=== PATIENT | male | born 1945 | race Caucasian/White ===

== ENCOUNTER 2016-11-15 11:39 | Emergency (ER) | payer MEDICARE, OTHER ==
[2016-11-15] MEDS ORDERED: RX INFO: IV CONTRAST WAS GIVEN 1 EACH MISC MISCELLANE PRN (12:53)
[2016-11-15] MEDS ORDERED: FAMOTIDINE 20 MG/2 ML VIAL IV STA (12:53)
[2016-11-15] MEDS ORDERED: MORPHINE SULFATE 4 MG/ML SYRINGE IVP STA (12:53)
[2016-11-15] MEDS ORDERED: SODIUM CHLORIDE 0.9% 1,000 ML IV STA (12:53)
--- NOTE | 2016-11-15 12:58 | ED ---
Abdominal Pain HPI - General Chief Complaint: Abdominal Pain Stated Complaint: abd pain Time Seen by Provider: 11/15/16 12:43 Source: patient, family Mode of arrival: ambulatory Limitations: no limitations - History of Present Illness Initial Comments: Patient is a 71-year-old male with past medical history of back pain, TBI, Lap band, colon cancer presenting with abdominal pain. Patient states he had MRI October 16 and since then has been having left upper quadrant pain. Pain is relieved with Tylenol No. 3. Patient states pain is worse with food. Patient concerned about lap band as well as spreading of cancer. Patient denies fever, chills, chest pain, shortness breath, nausea, vomiting, diarrhea. Patient admits to chronic typical headache, chronic incontinence with hematuria. - Related Data Home Medications Medication Instructions Recorded Confirmed Pravastatin Sodium [Pravachol] 20 mg PO HS 03/25/16 11/15/16 Acetaminophen-Codeine 300-30mg 1 tab PO Q6H PRN 11/15/16 11/15/16 [Tylenol #3] Amitriptyline HCl [Elavil] 10 mg PO HS 11/15/16 11/15/16 Meclizine [Antivert] 12.5 mg PO TID PRN 11/15/16 11/15/16 Methocarbamol [Robaxin] 750 mg PO BID PRN 11/15/16 11/15/16 Naproxen 500 mg PO Q12H 11/15/16 11/15/16 Previous Rx's Medication Instructions Recorded Dicyclomine [Bentyl] 20 mg PO QID #14 tablet 11/15/16 Allergies Allergy/AdvReac Type Severity Reaction Status Date / Time No Known Allergies Allergy Verified 11/15/16 14:34 Review of Systems ROS Statement: Those systems with pertinent positive or pertinent negative responses have been documented in the HPI. Constitutional: No fever and no chills. HENT: No congestion, no rhinorrhea and no sore throat. Eyes: No discharge and no redness. Respiratory: No cough and no shortness of breath. Cardiovascular: No chest pain and no palpitations. Gastrointestinal: No nausea, no vomiting, +abdominal pain and no diarrhea. Genitourinary: No dysuria and +hematuria. Musculoskeletal: No back pain and no arthralgias. Skin: No pallor and no rash. Neurological: No dizziness and +headaches. ROS Other: All systems not noted in ROS Statement are negative. Past Medical History Past Medical History: Cancer, Hyperlipidemia Additional Past Medical History / Comment(s): colon cancer, back pain, TBI History of Any Multi-Drug Resistant Organisms: None Reported Past Surgical History: Appendectomy, Bowel Resection, Hernia Repair Additional Past Surgical History / Comment(s): lap band, colon cancer Past Psychological History: PTSD Smoking Status: Former smoker Past Alcohol Use History: None Reported Past Drug Use History: None Reported General Exam - General Exam Comments Initial Comments: Constitutional: Patient appears well-developed and well-nourished. No distress. Head: Normocephalic and atraumatic. Eyes: Conjunctivae and EOM are normal. Right eye exhibits no discharge. Left eye exhibits no discharge. No scleral icterus. PERRL. Neck: Normal range of motion. Neck supple. Cardiovascular: Normal rate and regular rhythm. No murmur heard. Pulmonary/Chest: Effort normal and breath sounds normal. No respiratory distress. No wheezes. Abdominal: Soft. No distension. Mild left upper quadrant tenderness. There is no rebound and no guarding. Musculoskeletal: Normal range of motion. No edema or tenderness. Neurological: Patient alert and oriented to person, place, and time. Skin: Skin is warm and dry. Not diaphoretic. Nursing notes and vitals reviewed. Limitations: no limitations Course Vital Signs 11/15/16 11/15/16 11/15/16 11:41 13:12 14:56 Temperature 97.5 F L Pulse Rate 80 57 L 70 Respiratory 20 15 14 Rate Blood Pressure 140/81 131/81 152/84 O2 Sat by Pulse 98 97 96 Oximetry 11/15/16 16:19 Temperature 97.4 F L Pulse Rate 66 Respiratory 16 Rate Blood Pressure 176/95 O2 Sat by Pulse 97 Oximetry - Reevaluation(s) Reevaluation #1: 11/15/16 15:49 Patient resting currently in bed. No apparent distress. Patient was given IV fluids, morphine, Pepcid. CBC was unremarkable. CMP was unremarkable. UA showed [address] abdomen and pelvis showed hiatal hernia, cardiomegaly, left renal cortical cyst and a possible 2 mm nonobstructive right renal calculus. Patient informed of unremarkable abdominal pain workup and he is requesting to stay in the hospital for observation. Patient requesting to talk to administration for which charge lpn was notified. Medical Decision Making - Medical Decision Making Patient's a 71-year-old male presenting with right upper quadrant abdominal pain. Workup was unremarkable. Including unremarkable CT scan. Patient resting comfortably in the bed requesting this in the hospital for observation. Patient states he wants to stay in the hospital to make sure he doesn't get any worse. Patient informed that he does not meet criteria stay in the hospital. Patient contacted Medicare for possible inappropriate discharge for which the Medicare discussed with our case management team and administrative charge on duty. In conclusion, discharge deemed appropriate by Medicare, administrative charge and case management as well as myself. Patient to follow up outpatient with Dr. Lees and PCP. Patient encouraged to continue taking Tylenol No. 3 for the pain. Patient can take Bentyl as well which a prescription was provided. Prior to discharge, patient was resting comfortably in bed. Course of stay improved. Abdomen soft nontender. Discussed physical exam and diagnostic tests with patient. Questions answered and patient is agreeable to discharge with close follow up with Primary Care Physician. Instructed to return to Emergency Department if symptoms worsen. - Lab Data Result diagrams: 11/15/16 13:03 11/15/16 13:03 Lab Results 11/15/16 11/15/16 11/15/16 Range/Units 13:03 13:03 13:03 WBC 6.7 (3.8-10.6) k/uL RBC 4.70 (4.30-5.90) m/uL Hgb 13.9 (13.0-17.5) gm/dL Hct 42.0 (39.0-53.0) % MCV 89.3 (80.0-100.0) fL MCH 29.5 (25.0-35.0) pg MCHC 33.1 (31.0-37.0) g/dL RDW 13.5 (11.5-15.5) % Plt Count 195 (150-450) k/uL Neutrophils % 65 % Lymphocytes % 19 % Monocytes % 9 % Eosinophils % 4 % Basophils % 1 % Neutrophils # 4.4 (1.3-7.7) k/uL Lymphocytes # 1.3 (1.0-4.8) k/uL Monocytes # 0.6 (0-1.0) k/uL Eosinophils # 0.3 (0-0.7) k/uL Basophils # 0.1 (0-0.2) k/uL Sodium 144 (137-145) mmol/L Potassium 4.1 (3.5-5.1) mmol/L Chloride 108 H (98-107) mmol/L Carbon Dioxide 25 (22-30) mmol/L Anion Gap 11 mmol/L BUN 14 (9-20) mg/dL Creatinine 0.90 (0.66-1.25) mg/dL Est GFR (MDRD) Af Amer >60 (>60 ml/min/1.73 sqM) Est GFR (MDRD) Non-Af >60 (>60 ml/min/1.73 sqM) Glucose 82 (74-99) mg/dL Plasma Lactic Acid Luciano 1.0 (0.7-2.0) mmol/L Calcium 8.9 (8.4-10.2) mg/dL Magnesium 2.1 (1.6-2.3) mg/dL Total Bilirubin 0.6 (0.2-1.3) mg/dL AST 15 L (17-59) U/L ALT 30 (21-72) U/L Alkaline Phosphatase 50 (38-126) U/L Total Protein 6.8 (6.3-8.2) g/dL Albumin 4.0 (3.5-5.0) g/dL Lipase 187 (23-300) U/L Urine Color Urine Appearance (Clear) Urine pH (5.0-8.0) Ur Specific [place] (1.001-1.035) Urine Protein (Negative) Urine Glucose (UA) (Negative) Urine Ketones (Negative) Urine Blood (Negative) Urine Nitrate (Negative) Urine Bilirubin (Negative) Urine Urobilinogen (<2.0) mg/dL Ur Leukocyte Esterase (Negative) Urine RBC (0-5) /hpf Urine WBC (0-5) /hpf 11/15/16 Range/Units 14:45 WBC (3.8-10.6) k/uL RBC (4.30-5.90) m/uL Hgb (13.0-17.5) gm/dL Hct (39.0-53.0) % MCV (80.0-100.0) fL MCH (25.0-35.0) pg MCHC (31.0-37.0) g/dL RDW (11.5-15.5) % Plt Count (150-450) k/uL Neutrophils % % Lymphocytes % % Monocytes % % Eosinophils % % Basophils % % Neutrophils # (1.3-7.7) k/uL Lymphocytes # (1.0-4.8) k/uL Monocytes # (0-1.0) k/uL Eosinophils # (0-0.7) k/uL Basophils # (0-0.2) k/uL Sodium (137-145) mmol/L Potassium (3.5-5.1) mmol/L Chloride (98-107) mmol/L Carbon Dioxide (22-30) mmol/L Anion Gap mmol/L BUN (9-20) mg/dL Creatinine (0.66-1.25) mg/dL Est GFR (MDRD) Af Amer (>60 ml/min/1.73 sqM) Est GFR (MDRD) Non-Af (>60 ml/min/1.73 sqM) Glucose (74-99) mg/dL Plasma Lactic Acid Luciano (0.7-2.0) mmol/L Calcium (8.4-10.2) mg/dL Magnesium (1.6-2.3) mg/dL Total Bilirubin (0.2-1.3) mg/dL AST (17-59) U/L ALT (21-72) U/L Alkaline Phosphatase (38-126) U/L Total Protein (6.3-8.2) g/dL Albumin (3.5-5.0) g/dL Lipase (23-300) U/L Urine Color Light Yellow Urine Appearance Clear (Clear) Urine pH 5.5 (5.0-8.0) Ur Specific [place] 1.013 (1.001-1.035) Urine Protein Negative (Negative) Urine Glucose (UA) Negative (Negative) Urine Ketones Trace H (Negative) Urine Blood Moderate H (Negative) Urine Nitrate Negative (Negative) Urine Bilirubin Negative (Negative) Urine Urobilinogen <2.0 (<2.0) mg/dL Ur Leukocyte Esterase Negative (Negative) Urine RBC 3 (0-5) /hpf Urine WBC <1 (0-5) /hpf Disposition Clinical Impression: Abdominal pain Disposition: HOME SELF-CARE Condition: Good Instructions: Abdominal Pain (ED) Prescriptions: Dicyclomine [Bentyl] 20 mg PO QID #14 tablet Referrals: Dilshad Rain DO [Primary Care Provider] - 1-2 days Loco Lees MD [Medical Doctor] - 1-2 days
[2016-11-15 13:25] LABS: Basophils # (A) 0.1 k/uL (0-0.2); Basophils % (A) 1 %; CHCM 34.9; Eosinophils # (A) 0.3 k/uL (0-0.7); Eosinophils % (A) 4 %; HDW 2.68; HGB 13.9 gm/dL (13.0-17.5); Luc % (Auto) 2; Lymphocytes # (A) 1.3 k/uL (1.0-4.8); Lymphocytes % (A) 19 %; MCH 29.5 pg (25.0-35.0); MCHC 33.1 g/dL (31.0-37.0); MCV 89.3 fL (80.0-100.0); Mean Platelet Volume 7.7; Monocytes # (A) 0.6 k/uL (0-1.0); Monocytes % (A) 9 %; Neutrophils # (A) 4.4 k/uL (1.3-7.7); Neutrophils % (A) 65 %; RDW 13.5 % (11.5-15.5); WBC 6.7 k/uL (3.8-10.6); WBC (Perox) 6.96
[2016-11-15 13:43] LABS: ALT 30 U/L (21-72); AST 15 U/L (17-59); Alkaline Phosphatase 50 U/L (38-126); Anion Gap 11 mmol/L; Blood Urea Nitrogen 14 mg/dL (9-20); Calcium 8.9 mg/dL (8.4-10.2); Carbon Dioxide 25 mmol/L (22-30); Chloride 108 mmol/L (98-107); Glucose 82 mg/dL (74-99); Magnesium 2.1 mg/dL (1.6-2.3); Non-African American GFR(MDRD) >60 (>60 ml/min/1.73 sqM); Potassium 4.1 mmol/L (3.5-5.1); Sodium 144 mmol/L (137-145); Total Bilirubin 0.6 mg/dL (0.2-1.3); Total Protein 6.8 g/dL (6.3-8.2)
--- NOTE | 2016-11-15 14:36 | CT ---
EXAMINATION TYPE: CT abdomen pelvis w con DATE OF EXAM: 11/15/2016 2:16 PM COMPARISON: 02/20/2016 HISTORY: Mid Abdominal to pelvic pain for 2-[address] DLP: 1646 mGycm Automated exposure control for dose reduction was used. TECHNIQUE: Helical acquisition of images was performed from the lung bases through the pelvis. CONTRAST: Performed without Oral Contrast and with IV Contrast, patient injected with 100 mL of Omnipaque 300. FINDINGS: Lung bases are clear of consolidation. There is no pleural effusion. Heart appears enlarged. There is a hiatal hernia. There is some tubing related to bariatric surgery. Liver shows no focal defect. Bile ducts are not dilated. Gallbladder appears normal. Spleen and pancr eas appear normal. There is no adrenal mass. There is a 1.5 cm cortical cyst on the posterior left ki dney. There is no hydronephrosis. There is no retroperitoneal adenopathy. Ureters are not dilated. There is a small umbilical hernia that contains omental fat. There is no ascites. There is a penis implant noted. There is a 6 cm rounded fluid collection in the pelvis on the right side that is apparently a reservoir. I see no intestinal wall thickening. There a re no dilated loops. Fecal pattern is normal. Bladder distends smoothly. IMPRESSION: NO SIGN OF ACUTE ABDOMEN AND PELVIS. HIATAL HERNIA. CARDIOMEGALY. LEFT RENAL CORTICAL CYST. THERE IS A POSSIBLE 2 MM NONOBSTRUCTING RIGHT RENAL CALCULUS. NO ADVERSE CHANGE COMPARED TO THE OLD EXAM.
[2016-11-15 15:17] LABS: Appearance,Urine Clear (Clear); Bilirubin,Urine Negative (Negative); Glucose,Urine (UA) Negative (Negative); Ketones,Urine Trace (Negative); Leukocyte Esterase,Urine Negative (Negative); Nitrite,Urine Negative (Negative); PH, Urine 5.5 (5.0-8.0); Particle Count 362; Protein,Urine Negative (Negative); RBC,Urine 3 /hpf (0-5); Specific Gravity,Urine 1.013 (1.001-1.035); UA Billing (MACRO vs. MICRO) MICRO; Urobilinogen,Urine <2.0 mg/dL (<2.0); WBC,Urine <1 /hpf (0-5)
[2016-11-15 16:22] VITALS: BP 176/95; PULSE 66; RESP 16; TEMP 97.4
== END 2016-11-15 17:11 | disposition home or self-care (01) ==
LOC: EC 11:39
DX: R10.11 Right upper quadrant pain (principal); R10.12 Left upper quadrant pain; R31.9 Hematuria, unspecified; R32 Unspecified urinary incontinence; R51 Headache; F43.10 Post-traumatic stress disorder, unspecified; E78.5 Hyperlipidemia, unspecified; Z85.038 Personal history of other malignant neoplasm of large intestine; Z79.899 Other long term (current) drug therapy; Z87.891 Personal history of nicotine dependence; Z98.84 Bariatric surgery status; Z90.49 Acquired absence of other specified parts of digestive tract; Z98.890 Other specified postprocedural states
CPT/HCPCS: 99284; 96374; 96375; 96361; 36415; 80053; 83605; 83690; 83735; 85025; 81001; 74177; J2270; Q9967

== ENCOUNTER → 2016-12-31 | Outpatient (CLI) | payer OTHER ==
--- NOTE | 2016-12-31 12:17 | MR ---
EXAMINATION TYPE: MR brain wo/w con DATE OF EXAM: 12/31/2016 12:04 PM COMPARISON: NONE HISTORY: Postconcussion syndrome CONTRAST: Patient received 20 mL intravenous gadolinium contrast. Multiplanar and multispin-echo imaging of the brain was performed . Pre and post contrast enhanced i mages are obtained. The ventricles, basal cisterns and sulci overlying the cerebral convexities are mildly enlarged. There is evidence of mild to moderate periventricular white matter ischemic demyelination. Scattered focal areas of subcortical increased signal noted. Demyelination is not excluded. Remote deep white matter insults are also noted. No acute edema is seen on diffusion weighted imaging. There is no evidence for midline shift or mass effect. Acute intracranial hemorrhage or extra-axial collection is not evident. No enhancing lesions are seen. Mild mucoperiosteal thickening maxillary and ethmoid air cells as well as frontal sinuses. Mastoid ai r cells are well-aerated. IMPRESSION: Age-related atrophic and chronic small vessel ischemic change. No acute intracranial process at this time. Demyelination not excluded. No enhancing lesions are seen.
== END | disposition home or self-care (01) ==
LOC: RADMRIMAIN 11:15
PROVIDERS: ATTEND Psychiatry & Neurology Neurology
DX: G31.1 Senile degeneration of brain, not elsewhere classified (principal); I67.82 Cerebral ischemia
CPT/HCPCS: 70553; A9577

== ENCOUNTER → 2017-02-24 | Outpatient (CLI) | payer OTHER ==
[2017-02-23 15:26] VITALS: BMI 26.4
[2017-02-24 13:42] VITALS: BP 129/80; PULSE 63; RESP 16; TEMP 98.4
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
== END | disposition home or self-care (01) ==
LOC: PNWHC3 13:16
PROVIDERS: ATTEND Anesthesiology
DX: G37.9 Demyelinating disease of central nervous system, unspecified (principal); E78.5 Hyperlipidemia, unspecified; F43.10 Post-traumatic stress disorder, unspecified; Z87.891 Personal history of nicotine dependence; Z79.1 Long term (current) use of non-steroidal anti-inflammatories (NSAID); Z79.899 Other long term (current) drug therapy
CPT/HCPCS: 99211

== ENCOUNTER 2017-02-26 10:41 | Day surgery (SDC) | payer OTHER ==
[2017-02-25 10:05] VITALS: BMI 27.2
[2017-02-26] MEDS ORDERED: LACTATED RINGERS 1,000 ML IV SCH (11:00)
[2017-02-26 11:13] VITALS: RESP 18; TEMP 97.6
[2017-02-26] MEDS ORDERED: TRIAMCINOLONE ACETONIDE 40 MG/ML 1 ML VIAL ONE (11:59)
[2017-02-26] MEDS ORDERED: BUPIVACAINE (PF) 0.25% 30 ML VIAL ONE (11:59)
--- NOTE | 2017-02-26 12:17 | P.PCN ---
Date of Procedure: 02/26/17 Preoperative Diagnosis: Occipital neuralgia Postoperative Diagnosis: Same as above Procedure(s) Performed: Bilateral occipital nerve block Implants: Anesthesia: none Surgeon: Veronica Oneil Pathology: none sent Condition: stable Disposition: PACU Indications for Procedure: Operative Findings: Description of Procedure: The patient was seen in preop holding area consent was obtained then he was brought into the procedure 1 placed in prone position. The occipital artery on each side of the occiput was palpated and skin was marked at this area and then I used 25-gauge needle to go through the skin and to contact the skull bone then I infiltrated 3 mils of Marcaine 0.25% with 20 mg of Kenalog around the occipital artery in a fanlike fashion. The other side was done in the same manner .I used a total of 40 mg of Kenalog +5 MLS of Marcaine 0.25% for this procedure. Patient tolerated procedure well.
[2017-02-26 12:32] VITALS: BP 115/77; PULSE 57
== END 2017-02-26 12:42 | disposition home or self-care (01) ==
LOC: ORPAIN 10:41
PROVIDERS: ATTEND Anesthesiology
DX: M54.81 Occipital neuralgia (principal); G89.29 Other chronic pain; M54.2 Cervicalgia; E78.5 Hyperlipidemia, unspecified; Z87.820 Personal history of traumatic brain injury; Z87.891 Personal history of nicotine dependence; F43.10 Post-traumatic stress disorder, unspecified; Z79.899 Other long term (current) drug therapy
CPT/HCPCS: 64405; J3301

== ENCOUNTER 2017-06-11 08:13 | Day surgery (SDC) | payer OTHER ==
[~2017-06-11 08:13] MED LIST: LACTATED RINGERS 1,000 ML IV SCH
[2017-06-11 09:03] VITALS: RESP 16; TEMP 97.9
[2017-06-11] MEDS ORDERED: LIDOCAINE 1% 20 ML VIAL (10MG/ML) FOR IV START INTRADERMA ONE (09:03)
[2017-06-11] MEDS ORDERED: IV FLUID CONTINUATION 1,000 ML IV ONE (10:21)
[2017-06-11 10:48] VITALS: BP 119/78; PULSE 58
--- NOTE | 2017-06-11 11:03 | P.PCN ---
Date of Procedure: 06/11/17 Preoperative Diagnosis: Postoperative Diagnosis: Procedure(s) Performed: Pre-operative diagnosis: 1- Bilateral occipital neuralgea Post Operative Diagnosis 1- Bilateral occipital neuralgea Procedure: 1- Bilateral occipital nerve block ANESTHESIA: Conscious sedation with Versed. 2 mg and fentanyl 50 micrograms EBL: Minimal PROCEDURE INDICATION: The patient with neck pain and headache secondary to occipital neuralgea unresponsive to conservative treatments. PROCEDURE DESCRIPTION / TECHNIQUE: The patient was seen and identified in the preoperative area. Risks, benefits, complications, and alternatives were discussed with the patient, the patient agreed to proceed with the procedure and signed the consent. IV was started. Vital signs remained stable throughout the procedure. Patient was taken to the OR and time out was completed. The patient was placed in the sitting position on the procedure table. A pillow was placed under the patients chest to increase the cervical interlaminar space. The cervical area and right occiptial area were prepped with alcohol swab. Critical pause was taken. Vital signs were closely monitored during the procedure. Conscious sedation was used during the procedure to decrease patients anxiety. The right occiptal ridge was palpated and was then accessed with a 25 G needle. Then after negative aspiration, 6 ml of the block solution containing 6 ml of PF Buvicaine 0.5% and dexamethasone 10 mg was injected. Needle was withdrawn intact. Then the same procedure was repeated on the left side and related the left occipital nerve block, after negative aspiration 6 mL of the block solution containing ropivacaine 0.5% and 10 mg dexamethasone 10 mg injected after negative aspiration Patient tolerated procedure well. No acute complications. Implants: Indications for Procedure: Operative Findings: Description of Procedure:
== END 2017-06-11 10:51 | disposition home or self-care (01) ==
LOC: ORPAIN 08:13
PROVIDERS: ATTEND Specialist
DX: M54.81 Occipital neuralgia (principal); C18.9 Malignant neoplasm of colon, unspecified
CPT/HCPCS: 64405; J1100; 99152

== ENCOUNTER → 2017-07-27 | Outpatient (CLI) | payer OTHER ==
--- NOTE | 2017-07-27 13:14 | P.PN ---
Subjective Progress Note Date: 07/27/17 This is follow-up visit for this patient with a history of severe and chronic neck pain and headache secondary to cervical degenerative disc disease, and occipital neuralgia, we did interventional pain management injection,occipital nerve block 2 with good pain relief , patient currently on 1- Tylenol No. 3 every 6 hours 2- naproxen 500 mg twice a day 3- Robaxin 750 every 12 hours . 4-Elavil 10 mg daily at bedtime Patient denies any side effects of the medication, denies excessive drowsiness or sleepiness, denies suicidal ideation, and reports that the current pain medication is NOT helping To control the pain and improve activity of daily living . Patient denies any motor or sensory deficit, denies change in bowel movement or urination, patient denies any fever or night sweats and patient here for follow-up visit and medication refill Objective - Vital Signs Vital signs: Intake & Output 07/26/17 07/27/17 07/27/17 18:59 06:59 18:59 Weight 86.183 kg - Exam Physical Examinations : 1-Constitutiona : Cooperative , not in acute distress . 2-HEENT : nech ; supple , no Lymphadenopathy , normal thyroid size . eyes : no ptosis , no icterus, no photophobia . ENT : normal of hearing , normal oropharynx , no Thrush . 3- Respiratory : Chest clear to auscultations Bilaterally , no wheezing , no Rhonchi . 4- Cardiovascular : regular rate and rhythem , S1 , S2 , no S3 , no S4. 5- Gastrointestinal : abdomen soft no tenderness , bowel sounds positive all four quadrents , no organomegally . 6- Genitourinary : Defferred . 7- neurologic : Cranial nerve II to XII intact , no focal neurological deffecit . 8-psychatric : alert , oriented X 3 , appropriate affect , intact judgment and insight . 9-Lymphatic : no Lymphadenopathy . 10- musculoskeltal : cervical spine = motor stregnth in the deltoid and biceps, motor stregnth biceps and the wrist extensors (C6) . motor stregnth in the triceps muscle . deep tendon reflexes normal at the biceps , l normal at Brachioradialis normal at the triceps positive cervical facet loading test . Severe tenderness over the occipital nerve bilaterally Assessment and Plan Plan: Assessment and plan= chronic neck pain and headaches, secondary to, occipital neuralgia, cervical degenerative disc disease status post cervical fusion in March 2017 she had bilateral occipital nerve block done in the past with good pain relief, and improvement of his headache, he shouldn't good benefit from repeat occipital nerve block bilaterally Medication managements= patient getting prescription refills for from his primary care
[2017-07-27 14:53] VITALS: BP 130/82; PULSE 66; RESP 16; TEMP 98.2
== END | disposition home or self-care (01) ==
LOC: PNWHC3 12:44
PROVIDERS: ATTEND Specialist
DX: M50.30 Other cervical disc degeneration, unspecified cervical region (principal); Z98.1 Arthrodesis status; Z79.899 Other long term (current) drug therapy; Z79.1 Long term (current) use of non-steroidal anti-inflammatories (NSAID)
CPT/HCPCS: 99211

== ENCOUNTER → 2017-09-22 | Outpatient (CLI) | payer OTHER ==
[2017-09-22 14:26] LABS: Basophils # (A) 0.1 k/uL (0-0.2); Basophils % (A) 1 %; CH 30.5; Eosinophils # (A) 0.2 k/uL (0-0.7); Eosinophils % (A) 3 %; HCT 42.4 % (39.0-53.0); HDW 2.48; HGB 13.7 gm/dL (13.0-17.5); Luc # (Auto) 0.08; Luc % (Auto) 1; Lymphocytes # (A) 1.5 k/uL (1.0-4.8); Lymphocytes % (A) 21 %; MCH 29.9 pg (25.0-35.0); MCHC 32.2 g/dL (31.0-37.0); MCV 92.9 fL (80.0-100.0); Mean Platelet Volume 7.1; Monocytes # (A) 0.6 k/uL (0-1.0); Monocytes % (A) 9 %; Neutrophils # (A) 4.6 k/uL (1.3-7.7); Neutrophils % (A) 65 %; RBC 4.56 m/uL (4.30-5.90); RDW 14.1 % (11.5-15.5); WBC 7.1 k/uL (3.8-10.6); WBC (Perox) 7.07
[2017-09-22 14:41] LABS: Potassium 4.8 mmol/L (3.5-5.1)
== END | disposition home or self-care (01) ==
LOC: LABPAT 13:57
PROVIDERS: ATTEND Orthopaedic Surgery
DX: Z01.812 Encounter for preprocedural laboratory examination (principal); M23.92 Unspecified internal derangement of left knee
CPT/HCPCS: 36415; 80051; 85025

== ENCOUNTER 2017-10-15 13:05 | Day surgery (SDC) | payer OTHER ==
[2017-10-08 16:36] VITALS: BMI 27.8
--- NOTE | 2017-10-14 16:09 | HP ---
HISTORY AND PHYSICAL REASON FOR ADMISSION: Surgery is scheduled for 10/15/2017. Carson Albright is a 72-year-old patient seen with progressive left knee pain. We discussed treatment options. He elected to proceed with arthroscopy. Consent regarding procedure was obtained. PAST MEDICAL HISTORY: Hypercholesterolemia, hypertension. PAST SURGICAL HISTORY: Cervical fusion, prostate surgery, gastric bypass surgery. MEDICATIONS: Meclizine, Naprosyn, of ProStat. ALLERGIES: None reported. SOCIAL HISTORY: Patient denies tobacco use. PHYSICAL EXAMINATION: Evaluation of left knee is range of motion is -2/3 to 120 degrees. There is a mild effusion. Tenderness medial joint line. Positive medial Wendi's. Ligaments stable. Hip rotation without pain. Distal neurovascular exam intact. RADIOGRAPHS: Left knee radiographs revealed moderate medial compartment osteoarthritis. An MRI of the left knee revealed a medial meniscal tear. IMPRESSION: Internal derangement, left knee with medial meniscal tear. PLAN: Left knee arthroscopy with partial meniscectomy and debridement. Date of surgery 10/15/2017. MMODL / IJN: [id number] /
[~2017-10-15 13:05] MED LIST changes: +DEXAMETHASONE SOD PHOSPHATE 10 MG/ML 1 ML VIAL IV ONE; +LIDOCAINE 1% 20 ML VIAL (10MG/ML) FOR IV START INTRADERMA PRN; +MIDAZOLAM 2 MG/2 ML VIAL IV PRN; +ONDANSETRON 4 MG/2 ML VIAL IVP ONE; +SCOPOLAMINE 1.5MG/72HR PATCH TRANSDERM ONE; +ceFAZolin IN SWFI 2 GM/20 ML SYRINGE IVP ONE
[2017-10-15] MEDS ORDERED: PROPOFOL 10 MG/ML 20 ML VIAL IV ONE (14:31)
[2017-10-15] MEDS ORDERED: MIDAZOLAM 2 MG/2 ML VIAL ONE (14:31)
[2017-10-15] MEDS ORDERED: LIDOCAINE 1% INJ 10MG/ML (20 ML MDV) ONE (14:31)
[2017-10-15] MEDS ORDERED: SUCCINYLCHOLINE CHLORIDE 100 MG/5 ML SYR IV ONE (14:31)
[2017-10-15] MEDS ORDERED: fentaNYL (PF) 50 MCG/ML 2 ML AMP ONE (14:31)
[2017-10-15] MEDS ORDERED: BUPIVACAINE (PF) 0.25% 30 ML VIAL SQ ONE ×2 (15:00→15:21)
--- NOTE | 2017-10-15 15:38 | P.OP ---
Date of Procedure: 10/15/17 Preoperative Diagnosis: Internal derangement left knee Postoperative Diagnosis: 1. Tear medial and lateral meniscus left knee 2. Grade 4 chondromalacia medial femoral condyle left knee 3. 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 Grade 3 chondromalacia patella left knee 5. Reactive synovitis medial and suprapatellar compartments left knee Procedure(s) Performed: 1. Arthroscopic partial medial and lateral meniscectomy left knee 2. Arthroscopic chondroplasty medial femoral condyle left knee 3. Arthroscopic microfracture medial femoral condyle left knee 4. Arthroscopic chondroplasty medial tibial plateau left knee 5. Arthroscopic chondroplasty patella left knee 6. Arthroscopic partial synovectomy medial and suprapatellar compartments left knee Implants: None Anesthesia: MALCOLM, local Surgeon: Mikal Molina Estimated Blood Loss (ml): 10 Pathology: none sent Condition: stable Disposition: PACU Indications for Procedure: 72-year-old patient seen with progressive left knee pain. After treatment options were discussed, he elected to proceed with arthroscopy. Operative Findings: See description of procedure Description of Procedure: Patient was taken to the operative suite. Patient underwent a general anesthetic by the department of anesthesia. Patient was given preoperative antibiotics. The left lower extremity was placed in a well-padded arthroscopic leg delvalle. The left leg was prepped and draped in the normal sterile orthopedic fashion. A lateral parapatellar and suprapatellar incision was made. Trochars were inserted. Arthroscopy was initiated. Suprapatellar pouch revealed diffuse thick reactive synovitis. The patellofemoral joint appeared to articulate congruently. There was grade 3 chondromalacia of the patella with some osteochondral tears present. The scope was guided into the medial gutter. No loose bodies or plica were identified. The scope was then guided into the medial compartment. A medial parapatellar incision was made. Trocar inserted followed by probe. There was a complex tear posterior horn medial meniscus. Area of grade 3/4 chondromalacia medial femoral condyle with osteochondral tears. An area of grade 4 chondromalacia along the medial aspect the medial tibial plateau. Reactive synovitis anteriorly. I performed a partial medial meniscectomy down to stable tissue. I performed a chondroplasty of the medial femoral condyle and the medial tibial plateau getting down to stable tissue. I performed a partial synovectomy. The residual meniscus was stable. The residual osteochondral surface was stable. There was areas of external posterior bone along the weightbearing surface medial femoral condyle and weightbearing surface medial tibial plateau. I performed a microfracture to medial femoral condyle. The residual area was stable. Scope and probe were then guided into the intercondylar notch. Cruciates were identified, probed and found to be stable. The scope and probe were then guided into lateral compartment. There was radial tear midbody lateral meniscus. Grade 1 chondromalacia changes lateral compartment. No loose bodies. I performed a partial lateral meniscectomy down to stable tissue. The residual meniscus was stable. The scope was in guided back into the suprapatellar compartment. I introduced a motorized shaver into the super patellar compartment. I debrided some piecemeal fragments of meniscus I encountered. I performed a chondroplasty of the patella down to stable tissue. I performed a partial synovectomy. The residual osteochondral surface of the patella was stable. I took one more look on the entire knee, no residual debris. Instruments were now removed from the joint. The joint was infiltrated with .25% Marcaine. Steri-Strips were applied to the portal sites. Sterile dressings were applied. The patient was placed into a THANH hose. No tourniquet was utilized. The patient was awakened, transferred to a bed and taken to recovery stable satisfactory condition.
[2017-10-15 15:40] VITALS: RESP 16; TEMP 97.9
[2017-10-15] MEDS: HYDROmorphone 0.5 MG/0.5 ML SYRINGE IVP PRN ×4 (15:44→16:15)
[2017-10-15 17:13] VITALS: BP 144/76; PULSE 71
== END 2017-10-15 17:54 | disposition home or self-care (01) ==
LOC: OR 13:05
PROVIDERS: ATTEND Orthopaedic Surgery
DX: S83.232A Complex tear of medial meniscus, current injury, left knee, initial encounter (principal); S83.282A Other tear of lateral meniscus, current injury, left knee, initial encounter; X58.XXXA Exposure to other specified factors, initial encounter; M94.262 Chondromalacia, left knee; M22.42 Chondromalacia patellae, left knee; M65.862 Other synovitis and tenosynovitis, left lower leg; M25.462 Effusion, left knee; M17.12 Unilateral primary osteoarthritis, left knee; E78.00 Pure hypercholesterolemia, unspecified; I10 Essential (primary) hypertension; R51 Headache; Z87.820 Personal history of traumatic brain injury; Z98.1 Arthrodesis status; Z98.84 Bariatric surgery status; Z79.1 Long term (current) use of non-steroidal anti-inflammatories (NSAID); Z79.899 Other long term (current) drug therapy
CPT/HCPCS: 29880; 29879; J2250; J1100; J0690; J2405; J2001; J3010; J0330; J2704; J1170

== ENCOUNTER → 2017-11-04 | Outpatient (CLI) | payer OTHER ==
[2017-11-04 14:39] VITALS: BP 146/85; PULSE 94; RESP 16
--- NOTE | 2017-11-04 14:54 | P.PN ---
Progress Note - Text Progress Note Date: 11/04/17 Patient returns for followup for chronic pain in the back of the head and neck secondary to occipital neuralgia with good relief from previous ONBs, last done in August 2017 and which lasted two weeks' interval and each procedure has given him progressively longer relief. Patient continues on no regular medications for pain. Patient denies adverse drug effects from medications. Today, pt denies new-onset weakness, bowel/bladder incontinence, or any other signs or symptoms of cauda equina syndrome. There are no signs of acute intoxication, and no indications of medication diversion or overuse. In addition to above, 13-point review of systems is also negative for chest pain , shortness of breath, changes in vision, changes in hearing, new onset weakness , abdominal pain, diarrhea, extreme fatigue, malaise, fever, skin changes, homicidal or suicidal ideation, or bowel or bladder incontinence. Vital Signs: Reviewed in EMR Gen: WDWN, AAOx3, NAD HEENT: NCAT, EOMI, hearing grossly normal, TTP over occipital ridges bilateral Pulm: resp unlabored Abd: soft, NT, ND Neuro: CN II-XII grossly intact, muscle strength lower extremities PRESERVED Imaging: Reviewed in EMR Assessment: 1. occipital neuralgia 2. chronic pain due to trauma Plan: 1. Explanation: Opioid and psychological risk scores were reviewed. Diagnoses , prognoses, and multiple treatment options including but not limited to physical therapy, interventional therapies, adjuvant medical therapies, narcotic medication therapies, and surgery were discussed with the patient and all questions were answered to the patient's satisfaction. 2. Opioid agreement: no opioids prescribed today 3. Counseling: The patient was counseled extensively on BODY MASS INDEX, EXERCISE. Specifically, the patient was instructed regarding the importance of weight control, and exercise in the context of both chronic pain and overall health. 4. Procedures: bilateral occipital nerve block x 2 (3-4 weeks apart) 5. Consultations: None 6. Investigations: None 7. Medications: none prescribed 8. Disposition: f/u for procedure as scheduled PQRS measures: 1-Patient's medications are documented in the chart. 2-Tobacco use is negative 3-Patient has not had a pneumococcal vaccine. 4-Advanced care planning discussed, patient unable to give. 5-Opioid contract NOT signed with the patient. 6-Pain positive, follow-up visit or procedure scheduled 7-Patient's blood pressure measured and documented, and patient will follow up with the primary care due to hypertension. 8-Patient's weight was measured, and body mass index ABOVE the normal limits, and counseling was done. Patient instructed to follow up with PCP. 9-Patient WAS NOT identified as an unhealthy alcohol user.
== END | disposition home or self-care (01) ==
LOC: PNWHC3 14:20
PROVIDERS: ATTEND Anesthesiology
DX: G89.21 Chronic pain due to trauma (principal); M54.2 Cervicalgia; M54.81 Occipital neuralgia
CPT/HCPCS: 99211

== ENCOUNTER 2017-12-31 08:37 | Day surgery (SDC) | payer OTHER ==
[2017-12-30 08:33] VITALS: BMI 28.7
[2017-12-31 08:57] VITALS: TEMP 97.7
[2017-12-31] MEDS ORDERED: LIDOCAINE 1% 20 ML VIAL (10MG/ML) FOR IV START INTRADERMA ONE (08:57)
[2017-12-31] MEDS ORDERED: LACTATED RINGERS 1,000 ML IV ONE (08:57)
[2017-12-31] MEDS ORDERED: IV FLUID CONTINUATION 1,000 ML IV ONE (09:58)
[2017-12-31 10:15] VITALS: BP 131/72; PULSE 58; RESP 18
--- NOTE | 2018-01-06 09:08 | P.PCN ---
Date of Procedure: 12/31/17 Surgeon: Fantasma No Pathology: none sent Condition: stable Disposition: PACU Description of Procedure: PREOPERATIVE DIAGNOSIS: 1-occipital neuralgia POSTOPERATIVE DIAGNOSIS:. 1-occipital neuralgia PROCEDURE: Bilateral occipital nerve block ANESTHESIA: Conscious sedation. EBL: Minimal PROCEDURE INDICATION: The patient with neck pain and headache secondary to bilateral occipital neuralgia and has failed conservative management and had relief from ONBs in the past. No use of blood thinners. PROCEDURE DESCRIPTION / TECHNIQUE: The patient was seen and identified in the preoperative area. Risks, benefits, complications, and alternatives were discussed with the patient (including but not limited to incomplete pain relief , bleeding, infection, nerve damage, and allergies to medications), the patient agreed to proceed with the procedure and signed the consent after all questions were answered. Patient was taken to the OR and time out was completed to verify proper patient , position, laterality of pain, and allergies. Pt was placed in the sitting position. IV was started. Vital signs remained stable throughout the procedure. Conscious sedation was used during the procedure to decrease patients anxiety. The cervical area and bilateral occipital areas were prepped in the usual sterile fashion. Critical pause was taken. The right occipital ridge was palpated and was then accessed with a 25 G needle. Then after negative aspiration, 3 ml of the total 6 ml block solution containing 4 ml of PF Bupivacaine 0.5% and Kenalog 40 mg was injected. Needle was withdrawn intact. The entire procedure was then repeated on the left side exactly as above. Needle was withdrawn intact and there were no acute complications. DISPOSITION / PLANS: The patient was placed in a supine position and transferred to the recovery area in a stable condition for observation and was discharged from the recovery room after meeting discharge criteria. Home discharge instructions given to the patient by the staff. The patient was reexamined prior to discharge and there were no issues. The patient will schedule a follow up injection in approximately 2-4 weeks.
== END 2017-12-31 10:30 | disposition home or self-care (01) ==
LOC: ORPAIN 08:37
PROVIDERS: ATTEND Anesthesiology
DX: G89.29 Other chronic pain (principal); M54.81 Occipital neuralgia; I10 Essential (primary) hypertension; E78.5 Hyperlipidemia, unspecified
CPT/HCPCS: 64405; J2250; J3301; J2001; J3010

== ENCOUNTER → 2017-12-31 | Outpatient (CLI) | payer OTHER ==
[2017-12-31 11:30] LABS: Basophils % (A) 1 %; Eosinophils # (A) 0.3 k/uL (0-0.7); Eosinophils % (A) 5 %; HCT 39.9 % (39.0-53.0); HGB 13.4 gm/dL (13.0-17.5); Lymphocytes % (A) 21 %; MCH 29.8 pg (25.0-35.0); MCHC 33.5 g/dL (31.0-37.0); Mean Platelet Volume 7.3; Monocytes # (A) 0.4 k/uL (0-1.0); Monocytes % (A) 8 %; Neutrophils # (A) 3.2 k/uL (1.3-7.7); Neutrophils % (A) 64 %; Platelet Count 228 k/uL (150-450); RBC 4.49 m/uL (4.30-5.90); RDW 13.4 % (11.5-15.5); WBC 4.9 k/uL (3.8-10.6)
[2017-12-31 12:15] LABS: ALT 22 U/L (21-72); AST 24 U/L (17-59); Albumin 3.8 g/dL (3.5-5.0); Alkaline Phosphatase 50 U/L (38-126); Anion Gap 11 mmol/L; Blood Urea Nitrogen 14 mg/dL (9-20); Calcium 9.5 mg/dL (8.4-10.2); Carbon Dioxide 28 mmol/L (22-30); Chloride 105 mmol/L (98-107); Cholesterol 202 mg/dL (<200); Glucose 102 mg/dL (74-99); HDL Cholesterol 69 mg/dL (40-60); LDL Cholesterol,Calculated 120 mg/dL (0-99); Potassium 4.4 mmol/L (3.5-5.1); Sodium 144 mmol/L (137-145); Total Bilirubin 0.5 mg/dL (0.2-1.3); Total Protein 6.6 g/dL (6.3-8.2); Triglycerides 63 mg/dL (<150)
[2017-12-31 12:23] LABS: T4, Free (Free Thyroxine) 0.87 ng/dL (0.78-2.19)
[2017-12-31 12:48] LABS: Prostate Specific Antigen <0.10 ng/mL (0.00-4.00)
[2017-12-31 16:15] LABS: Vitamin D 25 Hydroxy 50.5 ng/mL (30.0-100.0)
[2017-12-31 16:53] LABS: ACTH <5.00 pg/mL (0.00-45.99)
== END | disposition home or self-care (01) ==
LOC: LABWHC1 10:44
PROVIDERS: ATTEND Internal Medicine
DX: E78.4 Other hyperlipidemia (principal); E23.0 Hypopituitarism; E55.9 Vitamin D deficiency, unspecified; R53.83 Other fatigue; D51.9 Vitamin B12 deficiency anemia, unspecified
CPT/HCPCS: 36415; 80053; 80061; 82024; 82306; 82533; 82607; 84146; 84153; 84402; 84403; 84439; 84443; 84480; 85025

== ENCOUNTER → 2018-01-08 | Outpatient (CLI) | payer OTHER | END | disposition home or self-care (01) | LOC: LABWHC1 10:01 | PROVIDERS: ATTEND Internal Medicine | DX: E23.0 Hypopituitarism (principal) | CPT/HCPCS: 36415; 84305 ==

== ENCOUNTER 2018-02-01 09:04 | Day surgery (SDC) | payer OTHER ==
[2018-01-27 10:50] VITALS: BMI 28.7
[~2018-02-01 09:04] MED LIST changes: -DEXAMETHASONE SOD PHOSPHATE 10 MG/ML 1 ML VIAL IV ONE; -LIDOCAINE 1% 20 ML VIAL (10MG/ML) FOR IV START INTRADERMA PRN; -MIDAZOLAM 2 MG/2 ML VIAL IV PRN; -ONDANSETRON 4 MG/2 ML VIAL IVP ONE; -SCOPOLAMINE 1.5MG/72HR PATCH TRANSDERM ONE; -ceFAZolin IN SWFI 2 GM/20 ML SYRINGE IVP ONE
[2018-02-01 10:08] VITALS: TEMP 98.3
[2018-02-01 10:08] LABS: Glucose,Whole Blood 85 mg/dL (75-99)
--- NOTE | 2018-02-01 10:36 | P.PCN ---
Date of Procedure: 02/01/18 Procedure(s) Performed: Pre-operative diagnosis: 1- Bilateral occipital neuralgea Post Operative Diagnosis 1- Bilateral occipital neuralgea Procedure: 1- Bilateral occipital nerve block ANESTHESIA: Moderate sedation with Versed.1 mg and fentanyl 50 micrograms EBL: Minimal PROCEDURE INDICATION: The patient with neck pain and headache secondary to occipital neuralgea unresponsive to conservative treatments. PROCEDURE DESCRIPTION / TECHNIQUE: The patient was seen and identified in the preoperative area. Risks, benefits, complications, and alternatives were discussed with the patient, the patient agreed to proceed with the procedure and signed the consent. IV was started. Vital signs remained stable throughout the procedure. Patient was taken to the OR and time out was completed. The patient was placed in the pron (sitting ) position on the procedure table. A pillow was placed under the patients chest to increase the cervical interlaminar space. The cervical area and right occiptial area were prepped with alcohol swab. Critical pause was taken. Vital signs were closely monitored during the procedure. Conscious sedation was used during the procedure to decrease patients anxiety. The right occiptal ridge was palpated and was then accessed with a 25 G needle. Then after negative aspiration, 6 ml of the block solution containing 6 ml of PF Buvicaine 0.5% and Kenalog 20 mg was injected. Needle was withdrawn intact. Then the same procedure was repeated on the left side and related the left occipital nerve block, after negative aspiration 6 mL of the block solution containing ropivacaine 0.5% and 20 mg of Kenalog injected after negative aspiration Patient tolerated procedure well. No acute complications.
[2018-02-01] MEDS ORDERED: IV FLUID CONTINUATION 600 ML IV ONE (10:43)
[2018-02-01 10:53] VITALS: RESP 18
[2018-02-01 11:10] VITALS: BP 127/80; PULSE 57
== END 2018-02-01 11:30 | disposition home or self-care (01) ==
LOC: ORPAIN 09:04
PROVIDERS: ATTEND Specialist
DX: M54.81 Occipital neuralgia (principal); C18.9 Malignant neoplasm of colon, unspecified; C61 Malignant neoplasm of prostate; F43.10 Post-traumatic stress disorder, unspecified; Z87.820 Personal history of traumatic brain injury
CPT/HCPCS: 64405; J2250; J3301; J3010

== ENCOUNTER → 2018-03-02 | Outpatient (CLI) | payer OTHER ==
[2018-03-02 15:06] VITALS: BP 151/92; PULSE 75; RESP 16
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
== END | disposition home or self-care (01) ==
LOC: PNWHC3 14:24
PROVIDERS: ATTEND Pain Medicine Pain Medicine
DX: M54.81 Occipital neuralgia (principal); Z87.891 Personal history of nicotine dependence; Z79.899 Other long term (current) drug therapy; Z79.1 Long term (current) use of non-steroidal anti-inflammatories (NSAID)
CPT/HCPCS: 99211

== ENCOUNTER 2018-03-23 09:31 | Day surgery (SDC) | payer OTHER ==
[2018-03-23 10:24] VITALS: TEMP 97.5
[2018-03-23] MEDS: LACTATED RINGERS 1,000 ML IV SCH ×2 (10:31→10:54)
[2018-03-23] MEDS ORDERED: LIDOCAINE 1% 20 ML VIAL (10MG/ML) FOR IV START INTRADERMA ONE (10:31)
--- NOTE | 2018-03-23 11:18 | P.PCN ---
Date of Procedure: 03/23/18 Surgeon: Fantasma No Pathology: none sent Condition: stable Disposition: PACU Description of Procedure: PREOPERATIVE DIAGNOSIS: Cervical spondylosis without myelopathy, cervicogenic headache. POSTOPERATIVE DIAGNOSIS: same PROCEDURES: Diagnostic bilateral C2-C3 medial branch block with fluoroscopic guidance ANESTHESIA: Local with 1% lidocaine; conscious sedation EBL: Minimal PROCEDURE INDICATION: This is a patient with neck pain and headaches secondary to cervical arthropathy unresponsive to more conservative treatments. No use of blood thinners. PROCEDURE DESCRIPTION / TECHNIQUE: The patient was seen and identified in the preoperative area. Risks, benefits, complications, and alternatives were discussed with the patient (including but not limited to incomplete pain relief , bleeding, infection, nerve damage, and allergies to medications), the patient agreed to proceed with the procedure and signed the consent after all questions were answered. IV was started. Vital signs remained stable throughout the procedure. Patient was taken to the OR and time out was completed. The patient was placed in the prone position on the procedure table. A pillow was placed under the patients chest to increase the cervical interlaminar space. The cervical area was prepped and draped in the usual sterile fashion. Critical pause was taken. Vital signs were closely monitored during the procedure. Conscious sedation was used during the procedure to decrease patients anxiety. Using cross-table lateral fluoroscopy, the centroid of the trapezoid of right C2 , was identified, marked, and localized with 1% lidocaine. Subsequently after localization with lidocaine 1%, a 22-g 3.5-inch spinal needle was advanced guided by fluoroscopy to the centroid of the trapezoid of C2. Needle tip position was confirmed at the centroid of the trapezoids of C3 with anteroposterior fluoroscopy. Subsequently, 1 ml of a 2 ml combination of 10 mg Decadron and 1 ml of preservative-free ropivacaine 0.5% was injected after negative aspiration for blood and CSF. Needle was then removed intact; the same procedure was repeated at the left C2 level. COMPLICATIONS: No acute complications. COMMENTS: DISPOSITION / PLANS: The patient was placed in a supine position and transferred to the recovery area in a stable condition for observation and was discharged from the recovery room after meeting discharge criteria. Home discharge instructions given to the patient by the staff. The patient was reexamined prior to discharge and there were no issues. The patient will schedule a follow up to discuss efficacy.
[2018-03-23 11:21] VITALS: RESP 18
--- NOTE | 2018-03-23 11:26 | FL ---
EXAMINATION TYPE: FL guided pain mgmt statistic DATE OF EXAM: 03/23/2018 CLINICAL HISTORY: Neck pain. TECHNIQUE: Fluoroscopy. COMPARISON: None. FINDINGS: Fluoroscopic guidance was provided during pain relief procedure performed by Dr. No . A total of 12 seconds of fluoroscopic time was utilized during the procedure and 3 spot images are ac quired. Images acquired shows needle localization at posterior C1-C2 level with partial visualizatio n of surgical change below this. IMPRESSION: As Above.
[2018-03-23 11:44] VITALS: BP 141/85; PULSE 54
[2018-03-23] MEDS ORDERED: IV FLUID CONTINUATION 1,000 ML IV ONE (11:45)
== END 2018-03-23 11:52 | disposition home or self-care (01) ==
LOC: ORPAIN 09:31
PROVIDERS: ATTEND Anesthesiology
DX: M47.812 Spondylosis without myelopathy or radiculopathy, cervical region (principal); M54.81 Occipital neuralgia; Z79.899 Other long term (current) drug therapy; Z87.891 Personal history of nicotine dependence
CPT/HCPCS: 64490; J2250; J1100; 99152

== ENCOUNTER → 2018-05-12 | Outpatient (CLI) | payer OTHER ==
[2018-05-12 14:40] VITALS: BP 140/92; PULSE 101; RESP 16
--- NOTE | 2018-05-12 15:42 | P.PAINPG ---
Subjective Progress Note Date: 05/12/18 This is 72 years old male with a history of severe neck pain and headache, and he is diagnosed with occipital neuralgia, and cervical spondylosis, patient had history of cervical fusion surgery , and currently is complaining of severe headache, previously we've done occipital nerve block bilaterally the first one was done in December and one in 2017 which provided him with good improvement of his headache and in 02/01/2018 we did bilateral occipital nerve block which helped his headaches significantly, but only for short term, a few weeks ago we did see to see bilateral medial branch block, and patient reported that his neck pain improved , but his headache never changed, his main problem currently is severe intractable headache which is increased with any neck movement, he denies any focal neurological deficit he denies any fever or night sweats and there is no change in the bowel movement or urination Objective - Vital Signs Vital signs: Vital Signs Temp Pulse 101 H 05/12/18 14:30 Resp 16 05/12/18 14:30 BP 140/92 05/12/18 14:30 Pulse Ox 97 05/12/18 14:30 Intake & Output 05/11/18 05/12/18 05/12/18 18:59 06:59 18:59 Weight 94.801 kg - Exam Physical Examinations : 1-Constitutiona : Cooperative , not in acute distress . 2-HEENT : nech ; supple , no Lymphadenopathy , normal thyroid size . eyes : no ptosis , no icterus , no photophobia . ENT : normal of hearing , normal oropharynx , no Thrush . 3- Respiratory : Chest clear to auscultations Bilaterally , no wheezing , no Rhonchi . 4- Cardiovascular : regular rate and rhythem , S1 , S2 , no S3 , no S4. 5- Gastrointestinal : abdomen soft no tenderness , bowel sounds , no organomegally . 6- Genitourinary : Defferred . 7- neurologic : Cranial nerve II to XII intact , no focal neurological deffecit . 8-psychatric : alert , oriented X 3 , appropriate affect , intact judgment and insight . 9-Lymphatic : no Lymphadenopathy . 10- musculoskeltal : Cervical Spine motor stregnth in the deltoid and biceps, normal right side , normal Left side motor stregnth biceps and the wrist extensors normal right side ,normal left side . motor stregnth in the triceps muscle . normal Right side , normal Left side deep tendon reflexes normal at the biceps , normal at Brachioradialis , normal at triceps. positive cervical facet loading test . Severe tenderness over the occipital nerves bilaterally Assessment and Plan Plan: Assessment and plan=1-occipital neuralgia. 2-cervical spondylosis with cervical facet arthropathy without myelopathy. 3-cervicogenic headache. 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 Patient had partial benefit after the medial branch C23. Patient could benefit from medial branch blocks cervical area C2 3/C3-4 /and third occipital nerve block, and if he had more than 50% decrease in his headache and neck pain then he would be a good candidate for radiofrequency ablation of the medial branch Time with Patient: Less than 30 PQRS Measure Charge Sheet Measure #130: Documentation of Current Meds in Medical Chart: Patient's medications documented in chart Measure #226: Tobacco Use: Screen & Cessation Intervention: Pt not a tobacco user Measure #111: Pneumonia Vaccination: Pneumococcal vaccine administered or previously received Measure #47: Advance Care Plan: Advance care planning discussed & documented, pt chose/unable to give Measure #412: Opioid Treatment Agreement: No documentation of signed opioid treatment agreement Measure #408: Opioid Therapy Follow-up Evaluation: Patient had NO f/u eval minimum every 3 months during opioid therapy Measure #317: Preventitive Care & Scrn High Bld Press & F/U: Pre-hypertensive or hypertensive BP documented, pt will f/u with PCP Measure #128: Body Mass Index (BMI) Screening & Follow-up: BMI documented ABOVE normal parameters - f/u documented Measure #131: Pain Assessment & Follow-up: Pain positive & plan documented, Follow-up scheduled Measure #431: Unhealthy Alcohol Use Preventative Care & Scrn: Patient not identified as an unhealthy alcohol user PQRS Narrative: Smoking Status Former smoker Blood Pressure 140/92 Pain Intensity [Head] 9 Scale Used Numeric (1 - 10) Hx Alcohol Use (MH) No Home Medications: Ambulatory Orders Pravastatin Sodium [Pravachol] 20 mg PO HS 03/25/16 Amitriptyline HCl [Elavil] 10 mg PO HS 11/15/16 Meclizine [Antivert] 12.5 mg PO TID PRN 11/15/16 Methocarbamol [Robaxin] 750 mg PO BID PRN 11/15/16 Naproxen 500 mg PO Q12H PRN 11/15/16 Controlled Substance Measures - Controlled Substance Measures Is patient prescribed a controlled substance at discharge?: No When asked, does pt state using other controlled substances?: No If prescribed controlled substance>3 days was MAPS reviewed?: No If Rx opioid, was Start Talking consent form obtained?: No If opioid is for acute pain is fill amount 7 days or less?: No Was information provided regarding opioid addiction?: No
== END | disposition home or self-care (01) ==
LOC: PNWHC3 13:47
PROVIDERS: ATTEND Specialist
DX: M47.812 Spondylosis without myelopathy or radiculopathy, cervical region (principal); M46.92 Unspecified inflammatory spondylopathy, cervical region; M54.81 Occipital neuralgia; R51 Headache; M96.1 Postlaminectomy syndrome, not elsewhere classified; Z87.891 Personal history of nicotine dependence; Z79.899 Other long term (current) drug therapy; Z79.1 Long term (current) use of non-steroidal anti-inflammatories (NSAID)
CPT/HCPCS: 99211

== ENCOUNTER → 2018-11-29 | Outpatient (CLI) | payer OTHER ==
[2018-11-29 11:34] LABS: Basophils % (A) 1 %; Eosinophils # (A) 0.3 k/uL (0-0.7); Eosinophils % (A) 6 %; HCT 39.2 % (39.0-53.0); HGB 13.3 gm/dL (13.0-17.5); Lymphocytes # (A) 1.1 k/uL (1.0-4.8); Lymphocytes % (A) 22 %; MCH 30.6 pg (25.0-35.0); MCHC 33.8 g/dL (31.0-37.0); MCV 90.5 fL (80.0-100.0); Mean Platelet Volume 6.4; Monocytes # (A) 0.5 k/uL (0-1.0); Monocytes % (A) 10 %; Neutrophils % (A) 60 %; Platelet Count 211 k/uL (150-450); RBC 4.33 m/uL (4.30-5.90); RDW 13.1 % (11.5-15.5); WBC 4.9 k/uL (3.8-10.6)
[2018-11-29 18:35] LABS: ALT 14 U/L (10-49); AST 26 U/L (14-35); Albumin/Globulin Ratio 1.91 (1.60-3.17); Alkaline Phosphatase 61 U/L (41-126); Carbon Dioxide 25.9 mmol/L (21.6-31.8); Chloride 109 mmol/L (96-109); Cholesterol 157 mg/dL (0-200); Globulin 2.2 g/dL (1.6-3.3); Glucose 87 mg/dL (70-110); Potassium 4.1 mmol/L (3.5-5.5); Sodium 142 mmol/L (135-145); Total Bilirubin 0.7 mg/dL (0.3-1.2); Total Protein 6.4 g/dL (6.2-8.2); Triglycerides <50.0 mg/dL (0.0-149.0); VLDL Calculation 9.98 mg/dL (5.00-40.00)
[2018-11-29 21:12] LABS: Hemoglobin A1C 5.3 % (4.0-6.0)
[2018-11-29 23:00] LABS: ACTH 23.5 pg/mL (0.00-45.99)
== END | disposition home or self-care (01) ==
LOC: LABWHC1 10:27
PROVIDERS: ATTEND Internal Medicine
DX: S06.9X9A Unspecified intracranial injury with loss of consciousness of unspecified duration, initial encounter (principal)
CPT/HCPCS: 36415; 80053; 80061; 82024; 82533; 83001; 83002; 83036; 84305; 84402; 84403; 84439; 84443; 84481; 85025

== ENCOUNTER 2019-01-04 18:08 | Emergency (ER) | payer OTHER ==
[2019-01-04 18:14] VITALS: BP 137/85; PULSE 91; RESP 18; TEMP 98.2
--- NOTE | 2019-01-04 19:20 | ED ---
Abdominal Pain HPI - General Chief Complaint: Abdominal Pain Stated Complaint: Stomach pain Time Seen by Provider: 01/04/19 19:04 Source: patient Mode of arrival: ambulatory Limitations: no limitations - History of Present Illness Initial Comments: This 73-year-old white male presents with a complaint of some mid abdominal pain. He states that it came on this morning. It occurred shortly after sneezing. It is caused him some mild to moderate pain and he notes a protuberance. He denies any nausea, vomiting, diarrhea, constipation, fevers. He has had multiple abdominal surgeries previously. He does relate that he has a thoracic aortic aneurysm which they noted after he apparently had a fall. He states that is 4.7 cm and is following up with the thoracic surgeon in the near future. His current symptoms do not appear to be related to this whatsoever. No other identifiable complaints or modifying factors. - Related Data Home Medications Medication Instructions Recorded Confirmed Pravastatin Sodium [Pravachol] 20 mg PO HS 03/25/16 01/04/19 Amitriptyline HCl [Elavil] 10 mg PO HS 11/15/16 01/04/19 Meclizine [Antivert] 12.5 mg PO TID PRN 11/15/16 01/04/19 Methocarbamol [Robaxin] 750 mg PO BID PRN 11/15/16 01/04/19 Naproxen 500 mg PO Q12H PRN 11/15/16 01/04/19 Allergies Allergy/AdvReac Type Severity Reaction Status Date / Time No Known Allergies Allergy Verified 01/04/19 19:11 Review of Systems ROS Statement: Those systems with pertinent positive or pertinent negative responses have been documented in the HPI. ROS Other: All systems not noted in ROS Statement are negative. Past Medical History Past Medical History: Cancer, Hyperlipidemia, Musculoskeletal Disorder Additional Past Medical History / Comment(s): colon CA;prostate CA; chronic back & shoulder pain, Traumatic Brain Injury, Headaches; Vertigo History of Any Multi-Drug Resistant Organisms: None Reported Past Surgical History: Appendectomy, Bowel Resection, Hernia Repair, Prostate Surgery Additional Past Surgical History / Comment(s): lap band, artificial urinary spincter, penile implant. Cervical fusion ; torn meniscus repair left knee Past Anesthesia/Blood Transfusion Reactions: No Reported Reaction Past Psychological History: Anxiety, PTSD Smoking Status: Former smoker Past Alcohol Use History: None Reported Past Drug Use History: None Reported - Past Family History Mother Family Medical History: No Reported History General Exam - General Exam Comments Initial Comments: GENERAL: The patient is well nourished and well hydrated. VITAL SIGNS: Heart rate, blood pressure, respiratory rate reviewed as recorded in nurse's notes. EYES: Pupils are round and reactive. Extraocular movements are intact. No conjunctival / lid redness or swelling. ENT: No external evidence of injury, swelling, or ecchymosis. Airway is patent. Throat is clear. NECK: Nontender. No swelling or evidence of injury. No subcutaneous emphysema. Trachea is midline. No thyroid mass. HEART: Regular rate and rhythm. Good peripheral pulses. LUNGS/CHEST: Breath sounds clear and equal bilaterally. No rales, rhonchi, or wheezes. No ecchymosis, subcutaneous emphysema, or tenderness. ABDOMEN: Abdomen soft with mild tenderness and obvious mid ventral wall hernia noted. This is more noticeable when he stands up. This is easily reducible as well. There is only minimal tenderness directly to the abdominal wall site. There is no other tenderness throughout the abdomen. No palpable masses or organomegaly. No peritoneal signs. EXTREMITIES: No extremity tenderness. Normal muscle tone and function. No thoracolumbar tenderness. NEUROLOGIC: Sensation is grossly intact. Cranial nerve exam reveals face is symmetrical, tongue is midline, speech is clear. SKIN: No abrasions or ecchymosis is noted. No induration or masses noted. PSYCHIATRIC: Alert and oriented. Appropriate behavior and judgment. Limitations: no limitations Course Vital Signs 01/04/19 18:10 Temperature 98.2 F Pulse Rate 91 Respiratory 18 Rate Blood Pressure 137/85 O2 Sat by Pulse 96 Oximetry Medical Decision Making - Medical Decision Making The patient was seen and examined. He has an easily reducible abdominal wall hernia. A long discussion was held with him and his in regards to his abdominal wall hernia. He has seen Dr. Lees in the past for his gastric bypass and can follow-up with him in this regard as well. Is felt that this certainly may need repair but it is not emergent at this time. It is felt as though he could take Tylenol and/or Motrin if needed for his minimal pain. Disposition Clinical Impression: Ventral hernia, Abdominal pain Disposition: HOME SELF-CARE Condition: Good Additional Instructions: Please take Tylenol and/or Motrin if needed for pain. Is patient prescribed a controlled substance at d/c from ED?: No Referrals: [facility],Clinic [Primary Care Provider] - 1-2 days Loco Lees MD [Medical Doctor] - 1-2 days Time of Disposition: 19:19
--- NOTE | 2019-01-04 19:21 | ED ---
Disposition Clinical Impression: Ventral hernia, Abdominal pain Disposition: HOME SELF-CARE Condition: Good Instructions (If sedation given, give patient instructions): Abdominal Pain (ED), Ventral Hernia (ED) Additional Instructions: Please take Tylenol and/or Motrin if needed for pain. Is patient prescribed a controlled substance at d/c from ED?: No Referrals: Loco Lees MD [Medical Doctor] - 1-2 days [facility] [Primary Care Provider] - 1-2 days Time of Disposition: 19:20
== END 2019-01-04 19:30 | disposition home or self-care (01) ==
LOC: EC 18:08
DX: K43.9 Ventral hernia without obstruction or gangrene (principal); E78.5 Hyperlipidemia, unspecified; F41.9 Anxiety disorder, unspecified; Z85.038 Personal history of other malignant neoplasm of large intestine; Z85.46 Personal history of malignant neoplasm of prostate; Z87.820 Personal history of traumatic brain injury; Z87.891 Personal history of nicotine dependence; Z90.49 Acquired absence of other specified parts of digestive tract; Z98.1 Arthrodesis status; Z98.84 Bariatric surgery status; Z98.890 Other specified postprocedural states; Z79.899 Other long term (current) drug therapy
CPT/HCPCS: 99283

== ENCOUNTER → 2019-04-06 | Outpatient (CLI) | payer OTHER ==
[2019-04-06 16:18] LABS: Basophils # (A) 0.1 k/uL (0-0.2); Basophils % (A) 1 %; Eosinophils # (A) 0.2 k/uL (0-0.7); Eosinophils % (A) 3 %; HCT 45.7 % (39.0-53.0); HGB 14.9 gm/dL (13.0-17.5); Lymphocytes # (A) 1.3 k/uL (1.0-4.8); Lymphocytes % (A) 22 %; MCHC 32.7 g/dL (31.0-37.0); MCV 88.7 fL (80.0-100.0); Mean Platelet Volume 6.9; Monocytes # (A) 0.4 k/uL (0-1.0); Monocytes % (A) 6 %; Neutrophils % (A) 66 %; Platelet Count 204 k/uL (150-450); RBC 5.15 m/uL (4.30-5.90); RDW 13.6 % (11.5-15.5)
== END | disposition home or self-care (01) ==
LOC: LABPAT 15:05
PROVIDERS: ATTEND Surgery
DX: Z01.810 Encounter for preprocedural cardiovascular examination (principal); Z01.812 Encounter for preprocedural laboratory examination; K43.0 Incisional hernia with obstruction, without gangrene
CPT/HCPCS: 36415; 85025; 86850; 86900; 86901; 93005

== ENCOUNTER 2019-04-15 09:34 | Day surgery (SDC) | payer MEDICARE, OTHER ==
[~2019-04-15 09:34] MED LIST changes: +DEXAMETHASONE SOD PHOSPHATE 10 MG/ML 1 ML VIAL IV ONE; +HEPARIN SODIUM,PORCINE 5,000 UNIT/ML 1 ML VIAL SQ ONE; -LACTATED RINGERS 1,000 ML IV SCH; +MIDAZOLAM 2 MG/2 ML VIAL IV PRN; +ONDANSETRON 4 MG/2 ML VIAL IVP ONE; +ceFAZolin IN SWFI 2 GM/20 ML SYRINGE IVP ONE
[2019-04-15] MEDS ORDERED: LIDOCAINE 1% 20 ML VIAL (10MG/ML) FOR IV START INTRADERMA ONE (10:20)
[2019-04-15] MEDS: LACTATED RINGERS 1,000 ML IV SCH ×2 (10:21→23:38)
[2019-04-15] MEDS ORDERED: ROCURONIUM BROMIDE 10 MG/ML 10 ML VIAL IV ONE (11:34)
[2019-04-15] MEDS ORDERED: HYDROmorphone (PF) 1 MG/ML ONE (11:34)
[2019-04-15] MEDS ORDERED: fentaNYL (PF) 50 MCG/ML 2 ML AMP ONE (11:34)
[2019-04-15] MEDS ORDERED: MIDAZOLAM 2 MG/2 ML VIAL ONE (11:34)
[2019-04-15] MEDS ORDERED: KETOROLAC 30 MG/ML 1 ML VIAL ONE (11:34)
[2019-04-15] MEDS ORDERED: ePHEDrine SULFATE/0.9% NACL/PF 50 MG/5 ML SYRINGE IV ONE (11:34)
[2019-04-15] MEDS ORDERED: SUCCINYLCHOLINE CHLORIDE 100 MG/5 ML SYR IV ONE (11:34)
[2019-04-15] MEDS ORDERED: GLYCOPYRROLATE 0.2 MG/ML 2 ML VIAL ONE (11:34)
[2019-04-15] MEDS ORDERED: NEOSTIGMINE 1 MG/ML 10 ML VIAL ONE (11:34)
[2019-04-15] MEDS ORDERED: LIDOCAINE 1% INJ 10MG/ML (20 ML MDV) ONE (11:34)
[2019-04-15] MEDS ORDERED: PROPOFOL 10 MG/ML 20 ML VIAL IV ONE (11:34)
[2019-04-15] MEDS ORDERED: BUPIVACAINE (PF) 0.25% 30 ML VIAL SQ ONE ×2 (12:05→12:47)
[2019-04-15] MEDS ORDERED: LACTATED RINGERS 1,000 ML IV ONE (12:44)
[2019-04-15] MEDS ORDERED: NALOXONE 0.4 MG/ML 1 ML VIAL IV PRN ×2 (13:06→14:34)
--- NOTE | 2019-04-15 13:13 | P.OP ---
Date of Procedure: 04/15/19 Procedure(s) Performed: PREOPERATIVE DIAGNOSIS: Reducible recurrent incisional hernia POSTOPERATIVE DIAGNOSIS: Same PROCEDURE: Repair reducible recurrent incisional hernia with mesh SURGEON: Nabeel EBL: Minimal ANESTHESIA: Gen. COMPLICATIONS: None OPERATIVE PROCEDURE: Patient placed on the operating table in the supine position. The previous incision was re-incised superiorly. Dissection through the saphenous tissues took place using electrocautery. A moderate sized hernia was identified. The hernia sac was carefully dissected down to the level of the fascia where it was excised. The patient had a fascial defect measuring 2 x 3 cm. There was omentum adherent to the edge of the fascia that was lysed using electrocautery. No other adhesions were identified. A 6.4 cm ventral ex mesh was placed beneath the fascia and secured to the fascia using interrupted 0 Ethibond trans-fascial sutures. The fascia was then reapproximated horizontally using overlapping 0 Ethibond mattress sutures. The folding edge was tacked down using interrupted 0 Ethibond sutures. The subcutaneous tissues were closed using 3-0 Vicryl sutures. The skin was closed using skin glue. Sterile dressings and an abdominal binder were applied. DISPOSITION: Stable to recovery room
[2019-04-15] MEDS: HYDROmorphone 0.5 MG/0.5 ML SYRINGE IVP PRN ×4 (13:24→14:04)
[2019-04-15] MEDS ORDERED: diphenhydrAMINE 50 MG/ML 1 ML VIAL IVP ONE (14:15)
[2019-04-15] MEDS ORDERED: HYDROmorphone 1 MG/ML 1 ML SYRINGE IVP PRN (14:34)
[2019-04-15] MEDS ORDERED: Acetaminophen-Codeine 300-30mg TAB PO PRN (14:34)
[2019-04-15] MEDS ORDERED: MEPERIDINE 50 MG/ML SYRINGE IVP ONE (14:48)
[2019-04-15 16:16] VITALS: BMI 31.3
[2019-04-15] MEDS: D5-0.45% NACL WITH KCL 20MEQ/L 1,000 ML IV SCH ×2 (16:28→23:40)
[2019-04-15] MEDS: KETOROLAC 30 MG/ML 1 ML VIAL IVP SCH ×2 (17:36→23:39)
[2019-04-15] MEDS: HEPARIN SODIUM,PORCINE 5,000 UNIT/ML 1 ML VIAL SQ SCH ×2 (17:37→23:40)
[2019-04-15] MEDS: FAMOTIDINE 20 MG TAB PO SCH (21:10)
[2019-04-15] MEDS: HYDROcodone/APAP 5-325MG 1 EACH TAB PO PRN (21:15)
[2019-04-16] MEDS: KETOROLAC 30 MG/ML 1 ML VIAL IVP SCH ×4 (06:02→23:24)
[2019-04-16] MEDS: HEPARIN SODIUM,PORCINE 5,000 UNIT/ML 1 ML VIAL SQ SCH ×3 (07:46→23:24)
[2019-04-16] MEDS: FAMOTIDINE 20 MG TAB PO SCH ×2 (07:46→20:29)
[2019-04-16] MEDS: HYDROcodone/APAP 5-325MG 1 EACH TAB PO PRN ×3 (07:49→20:29)
[2019-04-16] MEDS: D5-0.45% NACL WITH KCL 20MEQ/L 1,000 ML IV SCH ×2 (09:44→20:30)
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
--- NOTE | 2019-04-16 11:33 | P.PN ---
Subjective Progress Note Date: 04/16/19 Principal diagnosis: Incisional hernia Patient doing well. Complaining of persistent pain along the incision site. He states he is having too much pain to go home at this time. He is afebrile. Objective - Vital Signs Vital signs: Vital Signs Temp 97.5 F L 04/16/19 05:30 Pulse 59 L 04/16/19 05:30 Resp 18 04/16/19 05:30 BP 111/69 04/16/19 05:30 Pulse Ox 97 04/16/19 05:30 Intake & Output 04/15/19 04/16/19 04/16/19 18:59 06:59 18:59 Intake Total 1100 850 Output Total 4 Balance 1096 850 Intake: IV 1100 Oral 850 Output: Estimated Blood Loss 4 Other: # Voids 2 - Exam Abdomen: Soft, nondistended, dressing clean and dry, mild tenderness at incision site Assessment and Plan (1) Incisional hernia Narrative/Plan: Overall patient doing relatively well. Unfortunately his pain persists. His pain was bad in the recovery room and states it is slightly better than it was yesterday. We'll check labs at this time. Anticipate discharge tomorrow. Current Visit: Yes Status: Acute Code(s): K43.2 - INCISIONAL HERNIA WITHOUT OBSTRUCTION OR GANGRENE SNOMED Code(s): 158667120
[2019-04-16 22:47] VITALS: RESP 18; TEMP 97.5
[2019-04-17] MEDS: LACTATED RINGERS 1,000 ML IV SCH (00:44)
[2019-04-17] MEDS: KETOROLAC 30 MG/ML 1 ML VIAL IVP SCH ×2 (05:15→11:08)
[2019-04-17 06:03] VITALS: BP 124/67; PULSE 58
[2019-04-17] MEDS: FAMOTIDINE 20 MG TAB PO SCH (07:36)
[2019-04-17] MEDS: HEPARIN SODIUM,PORCINE 5,000 UNIT/ML 1 ML VIAL SQ SCH (07:36)
[2019-04-17] MEDS: HYDROcodone/APAP 5-325MG 1 EACH TAB PO PRN (07:36)
--- NOTE | 2019-04-17 08:36 | P.PN ---
Subjective This is a pleasant 73 years old male with past medical history of hyperlipidemia, memory impairment/dementia, history of rectal and colon cancer, chronic back pain and shoulder pain, vertigo, urinary tract infection. He presented for elective surgical correction of his incisional hernia. Patient today is postop day #1. He denies nausea vomiting, patient could not finish his diet because of his abdominal pain. His pain at the surgical site is expected, the pain is more with movement and relieved with rest. Patient is passing gases but no bowel movement yet. His hemodynamically stable. No labs from today. Patient continue with parenteral fluids of D5 half-normal saline with potassium at 100 mL per hour., Lowered to 50 mL/h. 04/17/2019 Patient is feeling better. He is able to consume his diet better than yesterday. No nausea vomiting. His abdominal pain is tolerable at 5/10. Increased by movement and occasional covering. Distal did not have bowel movement however his passing gases. Patient is Able to move around. Vitas looks stable. Patient is afebrile and he is saturating 97% on room air. Labs are still pending. Follow-up the results. Patient is still in February he wants to go home today. Objective - Vital Signs Vital signs: Vital Signs Temp 97.5 F L 04/17/19 05:00 Pulse 58 L 04/17/19 05:00 Resp 18 04/17/19 05:00 BP 124/67 04/17/19 05:00 Pulse Ox 97 04/17/19 05:00 Intake & Output 04/16/19 04/17/19 04/17/19 18:59 06:59 18:59 Intake Total 750 Balance 750 Intake: Oral 750 Other: # Voids 3 2 # Bowel Movements 0 - Exam GENERAL: The patient is alert and oriented x3, not in any acute distress. Well developed, well nourished. HEENT: Pupils are round and equally reacting to light. EOMI. No scleral icterus. No conjunctival pallor. Normocephalic, atraumatic. No pharyngeal erythema. No thyromegaly. CARDIOVASCULAR: S1 and S2 present. No murmurs, rubs, or gallops. PULMONARY: Chest is clear to auscultation, no wheezing or crackles. -ABDOMEN: Soft, tender in the middle of the abdomen at the surgical sites with a dressing over the vertical wound, wound is healing, nondistended, normoactive bowel sounds. No palpable organomegaly. MUSCULOSKELETAL: No joint swelling or deformity. EXTREMITIES: No cyanosis, clubbing, or pedal edema. NEUROLOGICAL: Gross neurological examination did not reveal any focal deficits. SKIN: No rashes. Assessment and Plan Assessment: Incisional hernia, status post hernia repair with mesh placement Hyperlipidemia History of memory impairment/dementia History of colon and rectal cancer and Chronic back pain and shoulder pain, history of vertigo, history of UTI Plan: This is a pleasant 73 years old male who presents for elective hernia repair. Continue with pain management and DVT prophylaxis as per the surgery primary team.Labs and medication were reviewed. IV fluid, we stopped. Continue same treatment. Continue with symptomatic treatment. Resume home medication. Monitor lytes and vitals. DVT and GI prophylaxis. Further recommendations of the clinical course of the patient DVT prophylaxis: Subcutaneous heparin GI Prophylaxis: Pepcid PT/OT: Pending Prognosis is guarded Recommend patient follow up with his PCP within one week. Thank you for consulting us, please feel to contact us for any further question or concerns.
[2019-04-17 09:06] LABS: Basophils # (A) 0.1 k/uL (0-0.2); Basophils % (A) 1 %; Eosinophils # (A) 0.3 k/uL (0-0.7); Eosinophils % (A) 5 %; HCT 41.1 % (39.0-53.0); HGB 13.1 gm/dL (13.0-17.5); Lymphocytes # (A) 1.9 k/uL (1.0-4.8); Lymphocytes % (A) 27 %; MCH 28.8 pg (25.0-35.0); MCHC 31.8 g/dL (31.0-37.0); MCV 90.6 fL (80.0-100.0); Mean Platelet Volume 7.1; Monocytes # (A) 0.8 k/uL (0-1.0); Monocytes % (A) 10 %; Neutrophils % (A) 55 %; Platelet Count 176 k/uL (150-450); RBC 4.54 m/uL (4.30-5.90); RDW 14.2 % (11.5-15.5); WBC 7.1 k/uL (3.8-10.6)
[2019-04-17 09:11] LABS: Calcium 8.2 mg/dL (8.4-10.2); Potassium 4.3 mmol/L (3.5-5.1)
--- NOTE | 2019-04-17 12:35 | P.DS ---
Providers Expected date of discharge: 04/17/19 Attending physician: Loco Lees Consults: 04/15/19 14:34 Consult Physician Routine Consulting Provider: Eric Vallejo Consult Reason/Comments: Medical management Do you want consulting provider notified?: Yes Primary care physician: [facility] - Discharge Diagnosis(es) (1) Incisional hernia Patient underwent elective hernia repair 2 days ago. Postoperatively the patient having more than the normal degree of discomfort. He wanted to stay for observation and pain control. He is doing well at this time. Pain is much improved today. Labs looked good. We'll discharge with plan for outpatient follow-up in 1 week. Current Visit: Yes Status: Acute Plan - Discharge Summary Discharge Rx Participant: No New Discharge Prescriptions: No Action Pravastatin Sodium [Pravachol] 20 mg PO HS Naproxen 500 mg PO Q12H PRN PRN Reason: Pain/INFLAMATION Methocarbamol [Robaxin] 750 mg PO BID PRN PRN Reason: Muscle Spasm Amitriptyline HCl [Elavil] 10 mg PO HS Polyvinyl Alcohol/Povidone [Clear Eyes Natural Tears Drop] 1 drop BOTH EYES DAILY Discharge Medication List Pravastatin Sodium [Pravachol] 20 mg PO HS 03/25/16 [History] Amitriptyline HCl [Elavil] 10 mg PO HS 11/15/16 [History] Methocarbamol [Robaxin] 750 mg PO BID PRN 11/15/16 [History] Naproxen 500 mg PO Q12H PRN 11/15/16 [History] Polyvinyl Alcohol/Povidone [Clear Eyes Natural Tears Drop] 1 drop BOTH EYES RYAN LY 04/13/19 [History] Follow up Appointment(s)/Referral(s): Loco Lees MD [Medical Doctor] - 04/20/19 3:30 pm [facility],Clinic [Primary Care Provider] - 1 Week Patient Instructions/Handouts: *Surgery [facility] - (Anesthesia) Discharge Instructions Outpatient Surgery, Laparoscopic Herniorrhaphy (DC)
== END 2019-04-17 13:47 | disposition home or self-care (01) ==
LOC: OR 09:34 → 4MS4W 13:06 → OR 04-17 13:47
PROVIDERS: ATTEND Surgery
DX: K43.0 Incisional hernia with obstruction, without gangrene (principal); K43.2 Incisional hernia without obstruction or gangrene; F41.9 Anxiety disorder, unspecified; F43.10 Post-traumatic stress disorder, unspecified; G89.29 Other chronic pain; E78.5 Hyperlipidemia, unspecified; M54.9 Dorsalgia, unspecified; M25.519 Pain in unspecified shoulder; F03.90 Unspecified dementia, unspecified severity, without behavioral disturbance, psychotic disturbance, mood disturbance, and anxiety; Z85.048 Personal history of other malignant neoplasm of rectum, rectosigmoid junction, and anus; Z85.46 Personal history of malignant neoplasm of prostate; Z90.49 Acquired absence of other specified parts of digestive tract; Z87.891 Personal history of nicotine dependence; Z87.440 Personal history of urinary (tract) infections; Z85.038 Personal history of other malignant neoplasm of large intestine; Z91.041 Radiographic dye allergy status; Z79.899 Other long term (current) drug therapy
CPT/HCPCS: 80048; 85025; 88302; 49565; 49568; C1781; J2250; J1200; J1644 ×3; J1100; J2710; J2175; J2405; J2001; J3010; J1885 ×3; J1170 ×2; J0330; J2704; J0690; 86850; 86900; 86901

== ENCOUNTER → 2019-05-04 | Outpatient (CLI) | payer OTHER ==
[2019-05-04 10:03] LABS: HCT 46.3 % (39.0-53.0); HGB 14.7 gm/dL (13.0-17.5); MCH 29.1 pg (25.0-35.0); MCHC 31.7 g/dL (31.0-37.0); MCV 91.6 fL (80.0-100.0); Mean Platelet Volume 7.1; Platelet Count 231 k/uL (150-450); RBC 5.06 m/uL (4.30-5.90); RDW 15.5 % (11.5-15.5); WBC 5.7 k/uL (3.8-10.6)
== END | disposition home or self-care (01) ==
LOC: LABWHC1 09:12
PROVIDERS: ATTEND Internal Medicine
DX: C61 Malignant neoplasm of prostate (principal); E29.1 Testicular hypofunction; S06.9X9A Unspecified intracranial injury with loss of consciousness of unspecified duration, initial encounter
CPT/HCPCS: 36415; 84153; 84305; 84402; 84403; 85027

== ENCOUNTER 2019-06-03 06:58 | Day surgery (SDC) | payer MEDICARE, OTHER ==
[2019-05-31 12:07] VITALS: BMI 31.2
[~2019-06-03 06:58] MED LIST changes: -DEXAMETHASONE SOD PHOSPHATE 10 MG/ML 1 ML VIAL IV ONE; -HEPARIN SODIUM,PORCINE 5,000 UNIT/ML 1 ML VIAL SQ ONE; +LACTATED RINGERS 1,000 ML IV SCH; +LIDOCAINE 1% 20 ML VIAL (10MG/ML) FOR IV START INTRADERMA PRN; -MIDAZOLAM 2 MG/2 ML VIAL IV PRN; -ONDANSETRON 4 MG/2 ML VIAL IVP ONE; -ceFAZolin IN SWFI 2 GM/20 ML SYRINGE IVP ONE
[2019-06-03 07:17] VITALS: RESP 16; TEMP 97.9
[2019-06-03] MEDS ORDERED: LIDOCAINE 1% INJ 10MG/ML (20 ML MDV) ONE (07:45)
[2019-06-03] MEDS ORDERED: PROPOFOL 10 MG/ML 20 ML VIAL IV ONE (07:45)
--- NOTE | 2019-06-03 08:13 | P.PCN ---
Date of Procedure: 06/03/19 Procedure(s) Performed: PREOPERATIVE DIAGNOSIS: Colon cancer screening POSTOPERATIVE DIAGNOSIS: Transverse colon polyp, diverticulosis PROCEDURE: Colonoscopy with snare polypectomy ANESTHESIA: MAC SURGEON: Loco Lees M.D. SPECIMENS: Polyp ENDOSCOPIC PROCEDURE: The patient was placed on the endoscopy table in the left decubitus position. The Olympus colonoscope was inserted into the anus and passed under direct visualization to the base of the cecum. The appendiceal orifice was visualized. From that point the scope was slowly withdrawn inspecting all surfaces carefully. There were no neoplastic inflammatory or polypoid lesions throughout the cecum and ascending colon. In the midtransverse colon a small polyp was identified and removed using the snare with cautery technique. The remainder of the transverse descending sigmoid and rectum were normal. There was mild left-sided diverticulosis. At the distal rectum there was scarring present from previous low anterior resection. Digital rectal examination was normal. The patient was taken to the recovery room in stable condition per anesthesia guidelines. RECOMMENDATIONS: Await biopsy results. Follow-up colonoscopy 5 years.
[2019-06-03 08:32] VITALS: BP 127/68; PULSE 58
== END 2019-06-03 08:50 | disposition home or self-care (01) ==
LOC: ORWHC2ENDO 06:58
PROVIDERS: ATTEND Surgery
DX: Z12.11 Encounter for screening for malignant neoplasm of colon (principal); K63.5 Polyp of colon; K57.30 Diverticulosis of large intestine without perforation or abscess without bleeding; Z85.038 Personal history of other malignant neoplasm of large intestine; Z90.49 Acquired absence of other specified parts of digestive tract; Z85.46 Personal history of malignant neoplasm of prostate; E78.5 Hyperlipidemia, unspecified; G89.29 Other chronic pain; M54.9 Dorsalgia, unspecified; M25.519 Pain in unspecified shoulder; Z87.820 Personal history of traumatic brain injury; R42 Dizziness and giddiness; F41.9 Anxiety disorder, unspecified; F43.10 Post-traumatic stress disorder, unspecified; R51 Headache; Z96.0 Presence of urogenital implants; Z98.1 Arthrodesis status; Z98.84 Bariatric surgery status; Z87.891 Personal history of nicotine dependence; Z79.1 Long term (current) use of non-steroidal anti-inflammatories (NSAID); Z79.899 Other long term (current) drug therapy; Z91.041 Radiographic dye allergy status
CPT/HCPCS: 88305; 45385; J2001; J2704

== ENCOUNTER → 2019-07-22 | Outpatient (CLI) | payer OTHER ==
[2019-07-22 11:04] LABS: HCT 46.5 % (39.0-53.0); HGB 15.4 gm/dL (13.0-17.5); MCH 30.4 pg (25.0-35.0); MCV 92.1 fL (80.0-100.0); Mean Platelet Volume 5.8; Platelet Count 220 k/uL (150-450); RBC 5.05 m/uL (4.30-5.90); RDW 13.3 % (11.5-15.5)
[2019-07-22 15:43] LABS: African American GFR (CKD) 68.6 (60.0-200.0); Albumin 4.4 g/dL (3.80-4.90); Albumin/Globulin Ratio 2.1 (1.60-3.17); Anion Gap 8.9 mmol/L (4.00-12.00); Calcium 8.9 mg/dL (8.7-10.3); Carbon Dioxide 26.1 mmol/L (21.6-31.8); Chol/HDL Ratio 3.51; Globulin 2.1 g/dL (1.6-3.3); LDL Cholesterol,Calculated 115.8 mg/dL (0.0-131.0); Potassium 4.3 mmol/L (3.5-5.5); Total Bilirubin 0.8 mg/dL (0.2-1.2); Total Protein 6.5 g/dL (6.2-8.2); VLDL Calculation 12.2 mg/dL (5.00-40.00)
[2019-07-22 15:50] LABS: T4, Free (Free Thyroxine) 1.1 ng/dL (0.80-1.80)
== END | disposition home or self-care (01) ==
LOC: LABWHC1 09:53
PROVIDERS: ATTEND Internal Medicine
DX: C61 Malignant neoplasm of prostate (principal); S06.9X9A Unspecified intracranial injury with loss of consciousness of unspecified duration, initial encounter; E29.1 Testicular hypofunction
CPT/HCPCS: 36415; 80053; 80061; 82533; 84153; 84305; 84403; 84439; 84443; 84481; 85027

== ENCOUNTER → 2020-04-11 | Outpatient (CLI) | payer OTHER, MEDICARE | END | disposition home or self-care (01) | LOC: LABWHC1 09:07 | PROVIDERS: ATTEND Internal Medicine | DX: E23.0 Hypopituitarism (principal) | CPT/HCPCS: 36415; 84305 ==

== ENCOUNTER → 2020-06-14 | Outpatient (CLI) | payer OTHER, MEDICARE ==
--- NOTE | 2020-06-14 13:43 | CT ---
EXAMINATION TYPE: CT brain wo/w con DATE OF EXAM: 06/14/2020 COMPARISON: 03/25/2016 HISTORY: Headache and weakness CT DLP: 2180.4 mGycm Automated exposure control for dose reduction was used. CONTRAST: CT scan of the head is performed without and with IV Contrast, patient injected with 100 mL of Isovue 300. FINDINGS: Mild generalized degenerative change of the greater frontal lobe component. No acute hemorrhage. No m ass effect. Calvarium intact. Changes of chronic sinusitis are seen. Craniocervical junction maintained. No midline shift or mass e ffect. Intracranial atherosclerotic changes. Globes are symmetric. Craniocervical junction maintained . Sella turcica has a normal appearance. IMPRESSION: Degenerative and minimal nonspecific white matter changes most typical remote microvascular ischemia.
--- NOTE | 2020-06-14 13:50 | CT ---
EXAMINATION TYPE: CT lumbar spine wo con DATE OF EXAM: 06/14/2020 1:37 PM COMPARISON: None HISTORY: Low back pain CT DLP: 1513.9 mGycm Automated exposure control for dose reduction was used. Unenhanced CT of the lumbar spine was performed. Bone and soft tissue window settings are submitted as well as coronal and sagittal reconstructions. Alignment is anatomic. Hypertrophic spurring and degenerative disc disease T11-T12. At T12-L1 no disc herniation or canal stenosis. No foraminal encroachment. L1-L2: Hypertrophic spurring anteriorly as well as posterior spondylosis. Neural foramina patent. No obvious disc herniation or canal stenosis. L2-L3: Normal disc space height. No disc herniation protrusion or central stenosis. No facet joint arthropathy. No evidence for foraminal encroachment. L3-L4: Degenerative disc disease with broad-based disc bulging and hypertrophic change of the facets. Mild canal stenosis and mild bilateral foraminal encroachment. No focal disc herniation. L4-L5: Moderate degenerative disc disease with posterior advanced facet arthropathy. Broad-based cent ral disc protrusion with ligamentum flavum hypertrophy and facet arthropathy result in moderate canal stenosis with bilateral foraminal mild encroachment. L5-S1: Facet arthropathy with no disc herniation or canal stenosis. Neural foramina remain patent. Ad vanced facet arthropathy. There is no destructive changes. There is a tiny focus of sclerosis involving the posterior elements of L2 which is too small to characterize but likely benign. Likely present on the previous CT scan of the pelvis dated 02/20/2016 and most likely related to bone island. 3 mm nonobstructing right renal calculus. There is a low attenuating lesion within the left posterior renal cortex measuring 9 Hounsfield units and 2 cm compatible with simple cyst stable from prior CT scan. Within the pelvis there are bilateral cystic masses which are only partially included the large st on the right measuring 5.2 cm in 9 Hounsfield units and measuring 3.2 cm on the left. Diverticulos is of the colon noted. Previous lap band surgery incidentally noted IMPRESSION: 1. Multilevel degenerative disc disease with multilevel facet arthropathy. Findings are most pronounc ed at L3-4 with mild canal stenosis, L4-L5 with central disc protrusion and moderate canal stenosis. 2. No destructive changes seen to suggest metastases. 3. There are cystic masses within the pelvis which are partially included. One of which was likely pr esent on the previous CT scan of 2016 and therefore likely is benign. Correlate with pelvic CT as cli nically warranted. 4. Nonobstructing right renal calculus.
== END | disposition home or self-care (01) ==
LOC: RADCTMAIN 11:44
PROVIDERS: ATTEND Psychiatry & Neurology Neurology
DX: M48.061 Spinal stenosis, lumbar region without neurogenic claudication (principal); M51.26 Other intervertebral disc displacement, lumbar region; M51.36 Other intervertebral disc degeneration, lumbar region; M47.816 Spondylosis without myelopathy or radiculopathy, lumbar region; I67.82 Cerebral ischemia; R90.82 White matter disease, unspecified; Z51.81 Encounter for therapeutic drug level monitoring
CPT/HCPCS: 82565; 84520; 72131; 70470; 36415; Q9967

== ENCOUNTER → 2020-10-26 | Outpatient (CLI) | payer OTHER ==
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
== END | disposition home or self-care (01) ==
LOC: RADCTMAIN 14:55
PROVIDERS: ATTEND Family Medicine
DX: N28.1 Cyst of kidney, acquired (principal); N20.0 Calculus of kidney
CPT/HCPCS: 74178

== ENCOUNTER → 2020-10-26 | Outpatient (CLI) | payer OTHER ==
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
== END | disposition home or self-care (01) ==
LOC: RADCTMAIN 14:54
PROVIDERS: ATTEND Psychiatry & Neurology Neurology
DX: M51.27 Other intervertebral disc displacement, lumbosacral region (principal); M47.817 Spondylosis without myelopathy or radiculopathy, lumbosacral region; I72.9 Aneurysm of unspecified site; R93.5 Abnormal findings on diagnostic imaging of other abdominal regions, including retroperitoneum
CPT/HCPCS: 82565; 84520; 72133; 36415; Q9967

== ENCOUNTER → 2020-11-16 | Outpatient (CLI) | payer OTHER ==
[2020-11-16 15:47] LABS: HCT 44.7 % (39.6-50.0); MCH 30.9 pg (27.0-32.0); MCHC 33.6 g/dL (32.0-37.0); Mean Platelet Volume 9.5 fL (9.5-12.2); Platelet Count 209 X 10*3/uL (140-440); RBC 4.86 X 10*6/uL (4.40-5.60); RDW 13.3 % (11.5-14.5); WBC 6.38 X 10*3/uL (4.50-10.00)
[2020-11-16 16:44] LABS: African American GFR (CKD) 68.1 (60.0-200.0); Albumin 4.7 g/dL (3.80-4.90); Albumin/Globulin Ratio 2.14 (1.60-3.17); Anion Gap 6.8 mmol/L (4.00-12.00); BUN/Creat Ratio 15.83 Ratio (12.00-20.00); Calcium 8.9 mg/dL (8.7-10.3); Carbon Dioxide 28.2 mmol/L (21.6-31.8); Chol/HDL Ratio 2.28; Globulin 2.2 g/dL (1.6-3.3); LDL Cholesterol,Calculated 89.8 mg/dL (0.0-131.0); Non-African American GFR(CKD) 58.8 (60.0-200.0); Potassium 4.6 mmol/L (3.5-5.5); Total Bilirubin 0.8 mg/dL (0.3-1.2); Total Protein 6.9 g/dL (6.2-8.2); VLDL Calculation 11.2 mg/dL (5.00-40.00)
[2020-11-16 16:52] LABS: T4, Free (Free Thyroxine) 1.2 ng/dL (0.80-1.80)
== END | disposition home or self-care (01) ==
LOC: LABWHC1 10:12
PROVIDERS: ATTEND Internal Medicine
DX: E29.1 Testicular hypofunction (principal); S06.9X9A Unspecified intracranial injury with loss of consciousness of unspecified duration, initial encounter
CPT/HCPCS: 36415; 80053; 80061; 82533; 84305; 84403; 84439; 84443; 84481; 85027

== ENCOUNTER → 2021-01-21 | Outpatient (CLI) | payer OTHER ==
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
== END | disposition home or self-care (01) ==
LOC: RADXRMAIN 11:30
PROVIDERS: ATTEND Psychiatry & Neurology Pain Medicine
DX: M50.323 Other cervical disc degeneration at C6-C7 level (principal); Z98.1 Arthrodesis status
CPT/HCPCS: 72050

== ENCOUNTER → 2021-01-29 | Outpatient (CLI) | payer MEDICARE, OTHER ==
[2021-01-29 14:21] VITALS: BP 144/94; PULSE 64; TEMP 98.2; BMI 30.9
--- NOTE | 2021-01-29 15:59 | P.BASOAP ---
Subjective Progress Note Date: 01/29/21 Principal diagnosis: Morbid obesity Patient returns for recheck. He was last seen 2019. Patient has gained some weight. He says he has less restriction. Believes he has approximately 8 mL in his band. No nausea or vomiting. Objective - Vital Signs Vital signs: Vital Signs Temp 98.2 F 01/29/21 14:19 Pulse 64 01/29/21 14:19 Resp BP 144/94 01/29/21 14:19 Pulse Ox Intake & Output 01/28/21 01/29/21 01/29/21 18:59 06:59 18:59 Weight 97.976 kg - Exam Abdomen: Soft, nontender, nondistended Assessment/Plan (1) Morbid obesity Narrative/Plan: Patient doing well at this time. Wants another fill. We'll add 0.5 mL. We'll review prior records. The patient's lap band port was palpated. The site was aseptically prepped. The Moreira needle was advanced into the port. A total of 0.5 ml of fluid was added. Pressure was held and a sterile dressing was applied. Plan: Date: 01/29/21 Initial Weight: Initial BMI: Current Weight: 97.976 kg Current BMI: 30.9 Type of Surgery: Total Volume in Band: 6.8 Previous Volume: Volume Removed: Volume Added: Band Size:
== END ==
LOC: BARWHC3 13:31
PROVIDERS: ATTEND Surgery
DX: E66.01 Morbid (severe) obesity due to excess calories (principal); Z46.51 Encounter for fitting and adjustment of gastric lap band; Z68.28 Body mass index [BMI] 28.0-28.9, adult; Z87.891 Personal history of nicotine dependence
CPT/HCPCS: 99212

== ENCOUNTER → 2021-03-21 | Outpatient (CLI) | payer MEDICARE ==
[2021-03-21 13:21] VITALS: BP 141/78; PULSE 65; RESP 16; TEMP 98.2; BMI 28.7
--- NOTE | 2021-03-21 15:35 | P.BASOAP ---
Subjective Progress Note Date: 03/21/21 Principal diagnosis: Dysphagia Patient underwent lap band adjustment January. He had 0.5 added to his band for a total of 7.3 mL. Patient states in retrospect felt that was too tight from the beginning and has had intermittent dysphagia. More recently the patient has had dysphagia to even liquids. Patient does not want all of that fluid removed if possible. Denies pain. Some heartburn. Objective - Vital Signs Vital signs: Vital Signs Temp 98.2 F 03/21/21 13:18 Pulse 65 03/21/21 13:18 Resp 16 03/21/21 13:18 BP 141/78 03/21/21 13:18 Pulse Ox Intake & Output 03/20/21 03/21/21 03/21/21 18:59 06:59 18:59 Weight 90.718 kg - Exam Abdomen: Soft, nontender, nondistended Assessment/Plan (1) Morbid obesity Narrative/Plan: Patient requesting only a small amount of the fluid be removed. We have agreed to remove 0.3 mL at this time. Patient will contact me tomorrow if any dysphagi a persists. Patient has a total of 7 mL in the band at this time. Plan: Date: 03/21/21 Initial Weight: 97.976 kg Initial BMI: 30.9 Current Weight: 90.718 kg Current BMI: 28.7 Type of Surgery: Adjustable Gastric Banding Total Volume in Band: 7.0 Previous Volume: 7.3 Volume Removed: 0.3 Volume Added: Band Size:
== END ==
LOC: BARWHC3 12:53
PROVIDERS: ATTEND Surgery
DX: E66.01 Morbid (severe) obesity due to excess calories (principal); Z46.51 Encounter for fitting and adjustment of gastric lap band; Z68.28 Body mass index [BMI] 28.0-28.9, adult; Z87.891 Personal history of nicotine dependence; Z91.041 Radiographic dye allergy status
CPT/HCPCS: 99212

== ENCOUNTER → 2021-03-27 | Outpatient (CLI) | payer OTHER | END | disposition home or self-care (01) | LOC: LABWHC1 14:55 | PROVIDERS: ATTEND Internal Medicine | DX: S06.9X9A Unspecified intracranial injury with loss of consciousness of unspecified duration, initial encounter (principal); E29.1 Testicular hypofunction; X58.XXXA Exposure to other specified factors, initial encounter | CPT/HCPCS: 36415; 84305 ==

== ENCOUNTER → 2021-04-16 | Outpatient (CLI) | payer MEDICARE ==
[2021-04-16 13:58] VITALS: BP 164/80; PULSE 84; RESP 16; TEMP 98.2; BMI 28.1
--- NOTE | 2021-04-16 14:52 | P.BASOAP ---
Subjective Progress Note Date: 04/16/21 Principal diagnosis: Morbid obesity Patient here today after we loosened His band last visit. He had 0.3 mL removed. Doing well today. Complaining of increased hunger. Wants fluid added. Objective - Vital Signs Vital signs: Vital Signs Temp 98.2 F 04/16/21 13:52 Pulse 84 04/16/21 13:52 Resp 16 04/16/21 13:52 BP 164/80 04/16/21 13:52 Pulse Ox Intake & Output 04/15/21 04/16/21 04/16/21 18:59 06:59 18:59 Weight 88.904 kg - Exam Abdomen: Soft, nontender, nondistended Assessment/Plan (1) Morbid obesity Narrative/Plan: Patient interested in band adjustment. We'll add 0.1 mL. The patient's lap band port was palpated. The site was aseptically prepped. The Moreira needle was advanced into the port. A total of 0.1 ml of fluid was added. Pressure was held and a sterile dressing was applied. Plan: Date: 04/16/21 Initial Weight: 97.976 kg Initial BMI: 30.9 Current Weight: 88.904 kg Current BMI: 28.1 Type of Surgery: Total Volume in Band: 7.1 Previous Volume: 7.0 Volume Removed: Volume Added: 0.1 Band Size:
== END ==
LOC: BARWHC3 13:35
PROVIDERS: ATTEND Surgery
DX: Z46.51 Encounter for fitting and adjustment of gastric lap band (principal); E66.01 Morbid (severe) obesity due to excess calories; Z68.28 Body mass index [BMI] 28.0-28.9, adult; Z91.041 Radiographic dye allergy status; Z87.891 Personal history of nicotine dependence
CPT/HCPCS: 99212

== ENCOUNTER → 2021-05-08 | Outpatient (CLI) | payer OTHER ==
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
== END | disposition home or self-care (01) ==
LOC: RADCTMAIN 13:18
DX: Z01.818 Encounter for other preprocedural examination (principal); M48.02 Spinal stenosis, cervical region; M99.71 Connective tissue and disc stenosis of intervertebral foramina of cervical region; M25.78 Osteophyte, vertebrae
CPT/HCPCS: 72125; 93005

== ENCOUNTER → 2021-06-06 | Outpatient (CLI) | payer OTHER, MEDICARE ==
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
== END | disposition home or self-care (01) ==
LOC: RADXRMAIN 13:41
PROVIDERS: ATTEND Psychiatry & Neurology Pain Medicine
DX: M19.012 Primary osteoarthritis, left shoulder (principal); M75.112 Incomplete rotator cuff tear or rupture of left shoulder, not specified as traumatic

== ENCOUNTER → 2021-07-22 | Outpatient (CLI) | payer OTHER ==
--- NOTE | 2021-07-22 12:10 | CT ---
EXAMINATION TYPE: CT angio chest DATE OF EXAM: 07/22/2021 COMPARISON: HISTORY: thoracic aneurysm CT DLP: 993.8 mGycm CONTRAST: CTA thoracic aorta with 3-D reconstruction is performed and without and with IV Contrast, patient inj ected with 80 mL of Isovue 370. Contrast CTA of the thoracic aorta was performed from the lung apex through the upper abdomen. 3D re construction imaging obtained at a separate workstation. CT Chest: THORACIC AORTA: Aneurysmal dilatation of the ascending thoracic aorta measuring 4.5 cm AP dimension. Ectasia of the aortic arch and descending thoracic aorta measuring up to 3 cm. No dissection or media stinal hematoma. Mild atheromatous changes are seen. LUNGS: The lungs are clear and free of infiltrate or atelectasis. No pulmonary nodule or mass is det ected. No pleural effusion or CT evidence of interstitial lung disease. MEDIASTINUM: No evidence for mediastinal hematoma. The heart is not enlarged. No evidence for med iastinal mass or adenopathy. HILAR STRUCTURES: No evidence for mass. No hilar adenopathy is appreciated. OTHER:Nonobstructing calculus right kidney. Renal cystic change. IMPRESSION- Aneurysmal dilatation of the ascending thoracic aorta measuring 4.5 cm AP dimension. Ectasia of the aortic arch and descending thoracic aorta measuring up to 3 cm.
== END | disposition home or self-care (01) ==
LOC: RADCTMAIN 10:47
DX: I77.810 Thoracic aortic ectasia (principal)
CPT/HCPCS: 82565; 84520; 71275; 36415; Q9967

== ENCOUNTER → 2021-07-23 | Outpatient (CLI) | payer OTHER ==
[2021-07-23 19:12] LABS: Basophils # (A) 0.09 X 10*3/uL (0.00-0.10); Basophils % (A) 1.3 %; Eosinophils # (A) 0.23 X 10*3/uL (0.04-0.35); Eosinophils % (A) 3.3 %; HCT 52.5 % (39.6-50.0); HGB 17.2 g/dL (13.0-17.0); Lymphocytes % (A) 22.8 %; MCH 31.9 pg (27.0-32.0); MCHC 32.8 g/dL (32.0-37.0); MCV 97.4 fL (80.0-97.0); Mean Platelet Volume 9.9 fL (9.5-12.2); Monocytes # (A) 0.96 X 10*3/uL (0.20-1.00); Monocytes % (A) 13.7 %; Neutrophils # (A) 4.12 X 10*3/uL (1.80-7.70); Neutrophils % (A) 58.6 %; Platelet Count 221 X 10*3/uL (140-440); RBC 5.39 X 10*6/uL (4.40-5.60); RDW 12.9 % (11.5-14.5); WBC 7.02 X 10*3/uL (4.50-10.00)
[2021-07-23 22:42] LABS: African American GFR (CKD) 56.2 (60.0-200.0); Albumin 4.7 g/dL (3.8-4.9); Albumin/Globulin Ratio 1.9 (1.60-3.17); Anion Gap 14.7 mmol/L (4.00-12.00); BUN/Creat Ratio 8.64 Ratio (12.00-20.00); Blood Urea Nitrogen 12.1 mg/dL (9.0-27.0); Calcium 9.4 mg/dL (8.7-10.3); Carbon Dioxide 23.5 mmol/L (21.6-31.8); Globulin 2.5 g/dL (1.6-3.3); Non-African American GFR(CKD) 48.5 (60.0-200.0); Potassium 4.5 mmol/L (3.5-5.5); Prostate Specific Antigen 10.6 ng/mL (0.00-6.50); Total Bilirubin 0.4 mg/dL (0.30-1.20); Total Protein 7.1 g/dL (6.2-8.2)
== END | disposition home or self-care (01) ==
LOC: LABWHC1 11:55
PROVIDERS: ATTEND Radiology Radiation Oncology
DX: C61 Malignant neoplasm of prostate (principal); E23.7 Disorder of pituitary gland, unspecified; E29.1 Testicular hypofunction; Z87.820 Personal history of traumatic brain injury; Z90.79 Acquired absence of other genital organ(s)
CPT/HCPCS: 36415; 80053; 84153; 84305; 84402; 84403; 85025

== ENCOUNTER → 2022-02-19 | Outpatient (CLI) | payer OTHER ==
--- NOTE | 2022-02-19 15:00 | NM ---
EXAMINATION TYPE: NM bone scan whole body DATE OF EXAM: 02/19/2022 COMPARISON: 10/08/2021 HISTORY: Prostate cancer Delayed whole-body scanning was performed following the injection of 22.8 mCi Tc 99m MDP. Images wer e acquired 4 hours post injection. FINDINGS: No suspicious focal uptake is evident. Some mild uptake at the knees may be related to degenerative c hange. IMPRESSION: 1. No suspicious uptake to suggest metastatic prostate cancer.
== END | disposition home or self-care (01) ==
LOC: RADNMMAIN 09:49
PROVIDERS: ATTEND Internal Medicine Hematology & Oncology
DX: C61 Malignant neoplasm of prostate (principal)
CPT/HCPCS: 78306; A9503

== ENCOUNTER → 2022-03-18 | Outpatient (CLI) | payer OTHER ==
--- NOTE | 2022-03-18 13:37 | CT ---
EXAMINATION TYPE: CT ChestAbdPelvis w con DATE OF EXAM: 03/18/2022 COMPARISON: CT dated 10/08/2021 HISTORY: Follow up for prostate cancer. CT DLP: 1402.8 mGycm Automated exposure control for dose reduction was used. CONTRAST: CT scan of the chest, abdomen and pelvis is performed with Oral Contrast and with IV Contrast, patien t injected with 80ml mL of Isovue 300. FINDINGS: LUNGS: The lungs are grossly clear, there is no concerning parenchymal mass or nodule identified. T here is no pleural effusion or pneumothorax seen. The tracheobronchial tree is patent. MEDIASTINUM: There are no greater than 1 cm hilar or mediastinal lymph nodes. Dilated right atrium. C oronary and arterial atherosclerotic calcifications. Ascending aortic aneurysm measuring up to 4.5 cm . No pericardial effusion is seen. OTHER: No aggressive bone lesion. LIVER/GB: No significant abnormality is appreciated. PANCREAS: No significant abnormality is seen. SPLEEN: No significant abnormality is seen. ADRENALS: No significant abnormality is seen. KIDNEYS: 4 mm nonobstructing stone is seen within the right kidney. 3 mm nonobstructing calculus seen at the lower pole of the left kidney. Simple renal cyst is seen in the upper pole of the left kidney . Unremarkable kidneys otherwise. BOWEL: Gastric band. Small sliding hiatal hernia. Unremarkable remainder of the stomach, duodenum an d small bowel. Scattered uncomplicated colonic diverticulosis. REPRODUCTIVE ORGANS: Previous prostatectomy. Benign prosthesis. The urinary bladder is not completely distended. LYMPH NODES: No greater than 1 cm abdominal or pelvic lymph nodes are appreciated. OSSEOUS STRUCTURES: No aggressive bone lesion. OTHER: Scattered arterial atherosclerotic calcifications. No sizable ascites. Small bilateral fat-con taining inguinal hernias. Stimulator devices are seen in the posterior aspect of the abdominal wall b ilaterally. IMPRESSION: No evidence of local tumor recurrence or metastatic disease in the chest, abdomen or the pelvis. Inci dental findings as described above.
== END | disposition home or self-care (01) ==
LOC: RADCTMAIN 11:06
PROVIDERS: ATTEND Internal Medicine Hematology & Oncology
DX: C61 Malignant neoplasm of prostate (principal)
CPT/HCPCS: 82565; 84520; 71260; 74177; 36415; Q9967 ×2

== ENCOUNTER → 2022-03-25 | Outpatient (CLI) | payer MEDICARE, OTHER ==
[2022-03-25 15:16] VITALS: BP 127/75; PULSE 69; RESP 16; TEMP 98.4; BMI 29.0
--- NOTE | 2022-03-25 15:30 | P.BASOAP ---
Subjective Progress Note Date: 03/25/22 Principal diagnosis: GERD Patient presents to the bariatric center complaining of some indigestion. Had a recent CAT scan for follow-up of his prostate cancer and a small hiatal hernia was described. Patient had a hiatal hernia repaired at the time of his LAP-BAND placement. Patient states about 6 weeks ago he had an episode where steak was stuck and had several episodes of vomiting. It was after that the patient had heartburn and indigestion symptoms. Those symptoms resolved about 1 week ago. CAT scan shows no definite prolapse or erosion. Patient has a proximally 7 mL in his band. No vomiting recently. Objective - Vital Signs Vital signs: Vital Signs Temp 98.4 F 03/25/22 15:13 Pulse 69 03/25/22 15:13 Resp 16 03/25/22 15:13 BP 127/75 03/25/22 15:13 Pulse Ox FiO2 Intake & Output 03/24/22 03/25/22 03/25/22 18:59 06:59 18:59 Weight 91.626 kg - Exam Abdomen: Soft, nontender, nondistended Assessment/Plan (1) Morbid obesity Narrative/Plan: Patient doing better recently. Discussed options of loosening the band, observation, or esophagram to evaluate the tightness of the band. I suspect his band was or is somewhat tight. Patient does not want any fluid removed as he states he is concerned he may gain weight. Since the symptoms have improved recently we will continue with observation for now. If any symptoms recur however patient will come in for either band fluid removal or esophagram. CAT scan was reviewed. No need to address small hiatal hernia any further at this time. Plan: Date: 03/25/22 Initial Weight: 97.976 kg Initial BMI: 30.9 Current Weight: 91.626 kg Current BMI: 29.0 Type of Surgery: Total Volume in Band: 7.1 Previous Volume: Volume Removed: Volume Added: Band Size:
== END ==
LOC: BARWHC3 14:53
PROVIDERS: ATTEND Surgery
DX: E66.01 Morbid (severe) obesity due to excess calories (principal); Z68.29 Body mass index [BMI] 29.0-29.9, adult; K44.9 Diaphragmatic hernia without obstruction or gangrene; Z98.84 Bariatric surgery status; Z91.041 Radiographic dye allergy status; Z87.891 Personal history of nicotine dependence
CPT/HCPCS: 99211

== ENCOUNTER → 2022-05-15 | Outpatient (CLI) | payer OTHER, MEDICARE ==
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
== END | disposition home or self-care (01) ==
LOC: RADCTMAIN 10:33
PROVIDERS: ATTEND Psychiatry & Neurology Neurology
DX: M75.112 Incomplete rotator cuff tear or rupture of left shoulder, not specified as traumatic (principal); I25.10 Atherosclerotic heart disease of native coronary artery without angina pectoris; I70.0 Atherosclerosis of aorta

== ENCOUNTER → 2022-08-01 | Outpatient (CLI) | payer MEDICARE ==
[2022-08-01 18:06] LABS: Basophils # (A) 0.06 X 10*3/uL (0.00-0.10); Eosinophils # (A) 0.19 X 10*3/uL (0.04-0.35); Eosinophils % (A) 3.2 %; HGB 15.2 g/dL (13.0-17.0); Immature Grans, Automated 0.3 %; Lymphocytes # (A) 1.16 X 10*3/uL (0.90-5.00); Lymphocytes % (A) 19.5 %; MCV 93.9 fL (80.0-97.0); Mean Platelet Volume 9.6 fL (9.5-12.2); Monocytes # (A) 0.73 X 10*3/uL (0.20-1.00); Monocytes % (A) 12.2 %; NRBC Per 100 WBC 0 /100 WBCS (0.0-0.0); Neutrophils % (A) 63.8 %; Platelet Count 174 X 10*3/uL (140-440); RDW 13.8 % (11.5-14.5); WBC 5.96 X 10*3/uL (4.50-10.00)
[2022-08-01 18:29] LABS: ALT 17 U/L (10-49); AST 17 U/L (14-35); African American GFR (CKD) 74.7 (60.0-200.0); Albumin 4.7 g/dL (3.8-4.9); Albumin/Globulin Ratio 1.96 (1.60-3.17); Alkaline Phosphatase 43 U/L (41-126); BUN/Creat Ratio 10.73 Ratio (12.00-20.00); Blood Urea Nitrogen 11.8 mg/dL (9.0-27.0); Calcium 9.2 mg/dL (8.7-10.3); Chloride 105 mmol/L (96-109); Follicle Stimulating Hormone 0.9 mIU/mL; Globulin 2.4 g/dL (1.6-3.3); Glucose 97 mg/dL (70-110); Non-African American GFR(CKD) 64.4 (60.0-200.0); Potassium 4.6 mmol/L (3.5-5.5); Sodium 143 mmol/L (135-145); Total Protein 7.1 g/dL (6.2-8.2)
[2022-08-01 18:35] LABS: Luteinizing Hormone <0.3 mIU/mL
== END | disposition home or self-care (01) ==
LOC: LABWHC1 12:34
PROVIDERS: ATTEND Internal Medicine
DX: E23.0 Hypopituitarism (principal)
CPT/HCPCS: 36415; 80053; 83001; 83002; 84305; 84403; 85025

== ENCOUNTER → 2022-09-11 | Outpatient (CLI) | payer MEDICARE | END | disposition home or self-care (01) | LOC: LABPAT 11:35 | PROVIDERS: ATTEND Psychiatry & Neurology Neurology | DX: Z01.812 Encounter for preprocedural laboratory examination (principal) | CPT/HCPCS: 93005 ==

== ENCOUNTER → 2023-03-24 | Outpatient (CLI) | payer OTHER ==
[2023-03-24 09:40] LABS: African American GFR (CKD) >90 (>60 ml/min/1.73 sqM); Blood Urea Nitrogen 23 mg/dL (9-20); Non-African American GFR(CKD) 78 (>60 ml/min/1.73 sqM)
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
== END | disposition home or self-care (01) ==
LOC: RADNMMAIN 08:59
PROVIDERS: ATTEND Internal Medicine Hematology & Oncology
DX: C61 Malignant neoplasm of prostate (principal)
CPT/HCPCS: 82565; 84520; 71260; 74177; 36415; 78306; A9503; Q9967

== ENCOUNTER → 2023-04-23 | Outpatient (CLI) | payer OTHER ==
[2023-04-23 16:02] LABS: Basophils # (A) 0.06 X 10*3/uL (0.00-0.10); Basophils % (A) 1.2 %; Eosinophils # (A) 0.17 X 10*3/uL (0.04-0.35); Eosinophils % (A) 3.3 %; HCT 44.1 % (39.6-50.0); HGB 14.6 d/dL (12.0-15.0); Lymphocytes # (A) 1.18 X 10*3/uL (0.90-5.00); Lymphocytes % (A) 22.7 %; MCH 30.3 pg (27.0-32.0); MCHC 33.1 d/dL (32.0-37.0); MCV 91.5 FL (80.0-97.0); Mean Platelet Volume 10.3 FL (9.5-12.2); Monocytes # (A) 0.64 X 10*3/uL (0.20-1.00); Monocytes % (A) 12.3 %; NRBC Per 100 WBC 0 X 10*3/uL (0.00-0.01); Neutrophils # (A) 3.14 X 10*3/uL (1.80-7.70); Neutrophils % (A) 60.3 %; Platelet Count 173 X 10*3/uL (140-440); RBC 4.82 X 10*6/uL (4.40-5.60); RDW 13.2 % (11.5-14.5)
== END | disposition home or self-care (01) ==
LOC: LABWHC1 10:18
PROVIDERS: ATTEND Internal Medicine
DX: E23.0 Hypopituitarism (principal)
CPT/HCPCS: 36415; 84305; 84403; 85025

== ENCOUNTER → 2023-09-22 | Outpatient (CLI) | payer OTHER ==
[2023-09-22 15:10] LABS: Basophils # (A) 0.05 X 10*3/uL (0.00-0.10); Basophils % (A) 0.9 %; Eosinophils # (A) 0.17 X 10*3/uL (0.04-0.35); Eosinophils % (A) 2.9 %; HCT 43.7 % (39.6-50.0); MCH 31.2 pg (27.0-32.0); MCHC 34.3 g/dL (32.0-37.0); MCV 90.9 FL (80.0-97.0); Mean Platelet Volume 9.8 FL (9.5-12.2); Monocytes # (A) 0.86 X 10*3/uL (0.20-1.00); Monocytes % (A) 14.8 %; NRBC Per 100 WBC 0 X 10*3/uL (0.00-0.01); Neutrophils # (A) 3.61 X 10*3/uL (1.80-7.70); Neutrophils % (A) 62.2 %; Platelet Count 189 X 10*3/uL (140-440); RBC 4.81 X 10*6/uL (4.40-5.60); RDW 13.1 % (11.5-14.5)
[2023-09-22 15:40] LABS: ALT 15 U/L (10-49); AST 16 U/L (14-35); Albumin 4.7 g/dL (3.8-4.9); Albumin/Globulin Ratio 1.88 Ratio (1.60-3.17); Alkaline Phosphatase 47 U/L (41-126); BUN/Creat Ratio 17.82 Ratio (12.00-20.00); Blood Urea Nitrogen 19.6 mg/dL (9.0-27.0); Calcium 9.9 mg/dL (8.7-10.3); Carbon Dioxide 24.7 mmol/L (21.6-31.8); Chloride 103 mmol/L (96-109); Chol/HDL Ratio 3.17 Ratio; Globulin 2.5 g/dL (1.6-3.3); Glucose 85 mg/dL (70-110); Potassium 4.4 mmol/L (3.5-5.5); Sodium 141 mmol/L (135-145); T4, Free (Free Thyroxine) 1.27 ng/dL (0.80-1.80); Total Bilirubin 0.7 mg/dL (0.3-1.2); Total Protein 7.2 g/dL (6.2-8.2)
== END | disposition home or self-care (01) ==
LOC: LABWHC1 10:08
DX: E29.9 Testicular dysfunction, unspecified (principal); Z87.820 Personal history of traumatic brain injury
CPT/HCPCS: 36415; 80053; 80061; 84305; 84403; 84439; 84443; 85025

== ENCOUNTER → 2023-12-09 | Outpatient (CLI) | payer OTHER ==
--- NOTE | 2023-12-09 17:27 | BD ---
EXAMINATION TYPE: Axial Bone Density DATE OF EXAM: 12/09/2023 CLINICAL HISTORY: 78 years old Male. ICD-10 CODE: M85.9 DISORDER OF BONE DENSITY AND STRUCTURE, UNSP Height: 68" Weight: 213lbs FRAX RISK QUESTIONS: Alcohol (3 or more units per day): No Family History (Parent hip fracture): No Glucocorticoids (More than 3mos): Yes (Ex: prednisone, prednisolone, methylprednisolone, dexamethasone, and hydrocortisone). History of Fracture in Adulthood: Yes Secondary Osteoporosis: 1. Type 1 Diabetes: No 2. Hyperthyroidism: No 3. Menopause before 45: N/A 4. Malnutrition: No 5. Chronic liver disease: No Rheumatoid Arthritis: No Current Tobacco Use: No RISK FACTORS HISTORY OF: Hip Fracture (Right/Left): No Spine Fracture: No, however patient has pain stimulator in lower back, did not scan lumbar spine History of Wrist Fracture: No Surgery to Spine/Hip(right/left)/Wrist (right/left): No MEDICATIONS: Thyroid Medications: No Osteoporosis Medications: No EXAM MEASUREMENTS: Bone mineral densitometry was performed using the [employer] Math System. Bone mineral density about the R hip (g/cm2): 1.087 Bone mineral density about the L hip (g/cm2): 1.058 T Score values are as follows: -----R Neck: -03 -----L Neck: -0.7 -----R Total: 0.6 -----L Total: 0.4 Z Score values are as follows: -----R Neck: 0.5 -----L Neck: 0.0 -----R Total: 0.6 -----L Total: 0.4 Baseline @MPH Bone mineral density about the L Wrist (g/cm2): 0.671 T Score values are as follows: -----Dist. R+U: -0.3 -----Prox. R+U: -1.2 -----Radius total: -1.2 Z Score values are as follows: -----Dist. R+U: 0.8 -----Prox. R+U: 0.0 -----Radius total: -0.1 Baseline @MPH FRAX%s: The graph provided illustrates a 12.9% chance for a major osteoporotic fx and a 3.8% chance f or the hips probability for fx in 10 years time. IMPRESSION: Osteopenia (T Score between -2.5 and -1). There is slightly increased risk of fracture and the patient may be considered for treatment. Re-Screen 2-5 years. NOTE: T-SCORE=SD OF THE YOUNG ADULT MEAN.
== END | disposition home or self-care (01) ==
LOC: RADBDWWP 11:37
PROVIDERS: ATTEND Internal Medicine Hematology & Oncology
DX: C61 Malignant neoplasm of prostate (principal); M85.89 Other specified disorders of bone density and structure, multiple sites; I71.20 Thoracic aortic aneurysm, without rupture, unspecified; Z71.3 Dietary counseling and surveillance
CPT/HCPCS: 77080

== ENCOUNTER 2024-03-27 10:24 | Emergency (ER) | payer MEDICARE, OTHER ==
[2024-03-27 10:34] VITALS: BP 154/87; PULSE 78; RESP 18; TEMP 97.7
--- NOTE | 2024-03-27 10:44 | ED ---
General Adult HPI - General Chief complaint: Extremity Injury, Lower Stated complaint: leg pain Time Seen by Provider: 03/27/24 10:36 Source: patient, RN notes reviewed Mode of arrival: ambulatory Limitations: no limitations - History of Present Illness Initial comments: Patient is a 78-year-old male presenting to the emergency department with concern for left leg injury. Patient accidentally struck his cabinet around 10 days ago. Patient is having discomfort still. Patient also has a scratch still. Unclear last tetanus immunization. No fever. Discomfort is left lower anterior leg. - Related Data Home Medications Medication Instructions Recorded Confirmed Pravastatin Sodium [Pravachol] 20 mg PO HS 03/25/16 03/26/22 Amitriptyline HCl [Elavil] 10 mg PO HS 11/15/16 03/26/22 Naproxen 500 mg PO Q12H PRN 11/15/16 03/26/22 methocarbamoL [Robaxin] 750 mg PO BID PRN 11/15/16 03/26/22 Polyvinyl Alcohol/Povidone [Clear 1 drop BOTH EYES DAILY 04/13/19 03/26/22 Eyes Natural Tears Drop] Abiraterone Acetate 250 mg PO DAILY 03/26/22 03/26/22 predniSONE 5 mg PO DAILY 03/26/22 03/26/22 Abiraterone Acetate [Zytiga] 500 mg PO BID 03/31/22 03/31/22 Previous Rx's Medication Instructions Recorded Mupirocin 2% Oint [Bactroban 2% 1 applic TOPICAL BID #22 gm 03/27/24 Oint] Allergies Allergy/AdvReac Type Severity Reaction Status Date / Time Gadolinium-Containing Allergy brain fog, Verified 03/27/24 10:34 Contrast Medi burning skin Review of Systems ROS Statement: Those systems with pertinent positive or pertinent negative responses have been documented in the HPI. ROS Other: All systems not noted in ROS Statement are negative. Constitutional: Denies: fever Eyes: Denies: eye pain ENT: Denies: ear pain Respiratory: Denies: cough Cardiovascular: Denies: chest pain Endocrine: Denies: fatigue Musculoskeletal: Reports: as per HPI Skin: Reports: as per HPI Past Medical History Past Medical History: Cancer, Hyperlipidemia, Musculoskeletal Disorder Additional Past Medical History / Comment(s): colon CA;prostate CA; chronic back & shoulder pain, Traumatic Brain Injury, Headaches; Vertigo History of Any Multi-Drug Resistant Organisms: None Reported Past Surgical History: Appendectomy, Bowel Resection, Hernia Repair, Prostate Surgery Additional Past Surgical History / Comment(s): lap band, artificial urinary spincter, penile implant. Cervical fusion ; torn meniscus repair left knee. RECURRENT INCISIONAL HERNIA REPAIR-04/15/19 Past Anesthesia/Blood Transfusion Reactions: No Reported Reaction Past Psychological History: Anxiety, PTSD Smoking Status: Never smoker Past Alcohol Use History: None Reported Past Drug Use History: None Reported - Past Family History Mother Family Medical History: No Reported History General Exam Limitations: no limitations General appearance: alert, in no apparent distress Head exam: Present: normocephalic Eye exam: Present: normal appearance Neck exam: Present: normal inspection. Absent: tenderness Respiratory exam: Present: normal lung sounds bilaterally Cardiovascular Exam: Present: regular rate, normal rhythm Expanded Peripheral pulses: 2+: Dorsalis Pedis (L) Extremities exam: Present: tenderness (Patient does have mild tenderness left lower anterior tibial region. There is associated 1 cm abrasion with surrounding erythema, minimal) Neurological exam: Present: alert Psychiatric exam: Present: normal affect, normal mood Skin exam: Present: erythema Course Vital Signs 03/27/24 10:32 Temperature 97.7 F Pulse Rate 78 Respiratory 18 Rate Blood Pressure 154/87 O2 Sat by Pulse 97 Oximetry Medical Decision Making - Medical Decision Making Was pt. sent in by a medical professional or institution (NINA Finch, MEDICAL DATA ENTRY CLERK, urgent care, hospital, or [facility]...) When possible be specific @ -No Did you speak to anyone other than the patient for history (EMS, parent, family, police, friend...)? What history was obtained from this source @ - is present and helps provide history including when the incident occurred Did you review nursing and triage notes (agree or disagree)? Why? @ -I reviewed and agree with nursing and triage notes Were old charts reviewed (outside hosp., previous admission, EMS record, old EKG, old radiological studies, urgent care reports/EKG's, [facility] records)? Report findings @ -No old charts were reviewed Differential Diagnosis (chest pain, altered mental status, abdominal pain women, abdominal pain men, vaginal bleeding, weakness, fever, dyspnea, syncope, headache, dizziness, GI bleed, back pain, seizure, CVA, palpatations, mental health, musculoskeletal)? @ -Differential Musculoskeletal Muscular strain, contusion, ligament sprain, fracture, arthritis, septic arthritis, bursitis, cellulitis, muscle spasm, nerve compression, DVT, arterial occlusion, herpes zoster, electrolyte abnormality, tumor.... This is not meant to be in all inclusive list EKG interpreted by me (3pts min.). @ -As above X-rays interpreted by me (1pt min.). @ -X-ray left tib-fib does not reveal acute abnormality CT interpreted by me (1pt min.). @ -None done U/S interpreted by me (1pt. min.). @ -None done What testing was considered but not performed or refused? (CT, X-rays, U/S, labs)? Why? @ -None What meds were considered but not given or refused? Why? @ -None Did you discuss the management of the patient with other professionals (professionals i.e. , PA, MEDICAL DATA ENTRY CLERK, lab, RT, psych nurse, criminal justice social worker, project engineer chemicals, teacher, environmental health officer, case finishing machine adjuster)? Give summary @ -No Was smoking cessation discussed for >3mins.? @ -No Was critical care preformed (if so, how long)? @ -No Were there social determinants of health that impacted care today? How? (Homelessness, low income, unemployed, alcoholism, drug addiction, transportation, low edu. Level, literacy, decrease access to med. care, [facility], rehab)? @ -No Was there de-escalation of care discussed even if they declined (Discuss DNR or withdrawal of care, Hospice)? DNR status @ -No What co-morbidities impacted this encounter? (DM, HTN, Smoking, COPD, CAD, Cancer, CVA, ARF, Chemo, Hep., AIDS, mental health diagnosis, sleep apnea, morbid obesity)? @ -None Was patient admitted / discharged? Hospital course, mention meds given and route , prescriptions, significant lab abnormalities, going to OR and other pertinent info. @ -Patient presents with abrasion with delayed healing. Patient will be prescribed mupirocin ointment and wound care instructions provided. Patient recommended close follow-up with his primary care physician. Undiagnosed new problem with uncertain prognosis? @ -No Drug Therapy requiring intensive monitoring for toxicity (Heparin, Nitro, Insulin, Cardizem)? @ -No Were any procedures done? @ -No Diagnosis/symptom? @ -Leg abrasion Acute, or Chronic, or Acute on Chronic? @ -Acute Uncomplicated (without systemic symptoms) or Complicated (systemic symptoms)? @ -Default Side effects of treatment? @ -No Exacerbation, Progression, or Severe Exacerbation? @ -No Poses a threat to life or bodily function? How? (Chest pain, [place], [place], pneumonia, PE, COPD, DKA, ARF, appy, cholecystitis, CVA, Diverticulitis, Homicidal, Suicidal, threat to staff... and all critical care pts) @ -No Disposition Clinical Impression: Leg abrasion Disposition: HOME SELF-CARE Condition: Stable Instructions (If sedation given, give patient instructions): Abrasion (ED) Additional Instructions: Prescription sent to pharmacy. Twice daily wash wound with soap and water and rinse thoroughly, apply antibiotic ointment and keep bandaged. Please do follow-up with your primary care physician less than 1 week. If symptoms continue for more than a couple weeks you may need to have evaluation in the wound center Prescriptions: Mupirocin 2% Oint [Bactroban 2% Oint] 1 applic TOPICAL BID #22 gm Is patient prescribed a controlled substance at d/c from ED?: No Referrals: Dilshad Rain DO [Primary Care Provider] - 1-2 days Time of Disposition: 11:20
[2024-03-27] MEDS: DIPH,PERTUS(ACELL)TETVAC-LF 0.5 ML VIAL IM ONE (10:59)
--- NOTE | 2024-03-27 11:09 | XR ---
EXAMINATION TYPE: XR tibia fibula LT DATE OF EXAM: 03/27/2024 COMPARISON: None HISTORY: Injury, pain, fall 2010 days prior TECHNIQUE: 2 views left tibia and fibula FINDINGS: No acute or subacute fractures evident. Joint spaces are preserved. No joint effusion is ev ident. Plantar and Achilles tendon calcaneal heel spurs are present. Ankle mortise appears intact. IMPRESSION: 1. No acute or subacute osseous abnormality radiographically apparent.
[2024-03-27] MEDS: IBUPROFEN 600 MG TAB PO STA (11:29)
== END 2024-03-27 11:32 | disposition home or self-care (01) ==
LOC: EC 10:24
DX: S80.812A Abrasion, left lower leg, initial encounter (principal); Z88.8 Allergy status to other drugs, medicaments and biological substances; Z23 Encounter for immunization; W23.0XXA Caught, crushed, jammed, or pinched between moving objects, initial encounter
CPT/HCPCS: 90471; 90715; 99283

== ENCOUNTER → 2024-03-29 | Outpatient (CLI) | payer OTHER ==
--- NOTE | 2024-03-29 13:01 | US ---
EXAMINATION TYPE: US venous doppler duplex LE LT DATE OF EXAM: 03/29/2024 12:40 PM COMPARISON: NONE CLINICAL INDICATION: Male, 78 years old with history of M79.662 PAIN IN LEFT LOWER LEG; Pain, edema l eft leg for 1 month SIDE PERFORMED: left TECHNIQUE: The lower extremity deep venous system is examined utilizing real time linear array sonog isabel with graded compression, doppler sonography and color-flow sonography. VESSELS IMAGED: Common Femoral Vein Deep Femoral Vein Greater Saphenous Vein * Femoral Vein Popliteal Vein Small Saphenous Vein * Proximal Calf Veins (* superficial vessels) Left Leg: No evidence of DVT. Complex anechoic area left popliteal fossa = 3.6 x 2.0cm IMPRESSION: 1. No evidence for DVT within the left lower extremity imaged from the groin to the upper calf. 2. Small to moderate-sized complex Toro's cyst measuring up to 3.6 cm.
== END | disposition home or self-care (01) ==
LOC: RADUSWWP 12:16
PROVIDERS: ATTEND Internal Medicine Hematology & Oncology
DX: C61 Malignant neoplasm of prostate (principal); M71.22 Synovial cyst of popliteal space [Baker], left knee; R60.9 Edema, unspecified; M85.9 Disorder of bone density and structure, unspecified; Z71.3 Dietary counseling and surveillance

== ENCOUNTER → 2024-04-01 | Outpatient (CLI) | payer OTHER ==
[2024-04-01 17:27] LABS: Basophils # (A) 0.09 X 10*3/uL (0.00-0.10); Basophils % (A) 1.3 %; Eosinophils # (A) 0.32 X 10*3/uL (0.04-0.35); Eosinophils % (A) 4.5 %; HGB 14.4 g/dL (13.0-17.0); Lymphocytes # (A) 1.41 X 10*3/uL (0.90-5.00); Lymphocytes % (A) 19.6 %; MCH 31.3 pg (27.0-32.0); MCHC 34.3 g/dL (32.0-37.0); MCV 91.3 FL (80.0-97.0); Mean Platelet Volume 10.3 FL (9.5-12.2); Monocytes # (A) 1.14 X 10*3/uL (0.20-1.00); Monocytes % (A) 15.9 %; NRBC Per 100 WBC 0 X 10*3/uL (0.00-0.01); Neutrophils # (A) 4.21 X 10*3/uL (1.80-7.70); Neutrophils % (A) 58.6 %; Platelet Count 197 X 10*3/uL (140-440); RDW 13.4 % (11.5-14.5); WBC 7.18 X 10*3/uL (4.50-10.00)
[2024-04-01 17:49] LABS: ALT 22 U/L (10-49); AST 27 U/L (14-35); Albumin 4.6 g/dL (3.8-4.9); Albumin/Globulin Ratio 1.92 Ratio (1.60-3.17); Alkaline Phosphatase 53 U/L (41-126); Blood Urea Nitrogen 19.4 mg/dL (9.0-27.0); Calcium 9.6 mg/dL (8.7-10.3); Carbon Dioxide 21.4 mmol/L (21.6-31.8); Chloride 106 mmol/L (96-109); Chol/HDL Ratio 2.53 Ratio; Globulin 2.4 g/dL (1.6-3.3); Glucose 98 mg/dL (70-110); LDL Cholesterol,Calculated 92.5 mg/dL (0.0-131.0); Potassium 4.5 mmol/L (3.5-5.5); Sodium 141 mmol/L (135-145); Total Bilirubin 0.4 mg/dL (0.3-1.2); VLDL Calculation 16.88 mg/dL (5.00-40.00)
[2024-04-01 18:03] LABS: Testosterone <10.00 ng/dL (86.98-780.10)
== END | disposition home or self-care (01) ==
LOC: LABWHC1 09:11
PROVIDERS: ATTEND Internal Medicine
DX: E29.1 Testicular hypofunction (principal); Z87.820 Personal history of traumatic brain injury
CPT/HCPCS: 36415; 80053; 80061; 84305; 84403; 84439; 84443; 85025

== ENCOUNTER → 2024-06-27 | Outpatient (CLI) | payer OTHER ==
--- NOTE | 2024-06-28 10:40 | CA ---
Transthoracic Echo Report Name: Carson Albright Age: 78 Gender: M : 1945 Exam Date: 06/27/2024 11:11 Exam Location: [place] [facility] Ht (in): 70 Wt (lb): 210 Ordering Physician: Eric Felix MD Attending/Referring Phys: Eric Felix MD Keno Attendant Radha Soliman [facility] Procedure CPT: Indications: I35.2 Cardiac Hx: Technical Quality: Fair Contrast 1: Total Dose (mL): Contrast 2: Total Dose (mL): MEASUREMENTS (Male / Female) Normal Values 2D ECHO LV Diastolic Diameter PLAX 4.4 cm 4.2 - 5.9 / 3.9 - 5.3 cm LV Systolic Diameter PLAX 2.9 cm IVS Diastolic Thickness 1.2 cm 0.6 - 1.0 / 0.6 - 0.9 cm LVPW Diastolic Thickness 1.2 cm 0.6 - 1.0 / 0.6 - 0.9 cm LV Relative Wall Thickness 0.6 RV Internal Dim ED PLAX 6.0 cm LA Volume 69.6 cm??? 18 - 58 / 22 - 52 cm??? LA Volume Index 31.7 cm???/m??? 16 - 28 cm???/m??? M-MODE Aortic Root Diameter MM 3.9 cm LA Systolic Diameter MM 3.4 cm LA Ao Ratio MM 0.9 AV Cusp Separation MM 1.8 cm DOPPLER AV Peak Velocity 133.3 cm/s AV Peak Gradient 7.1 mmHg AV Mean Velocity 95.2 cm/s AV Mean Gradient 4.1 mmHg AV Velocity Time Integral 26.8 cm AI Peak Velocity 390.4 cm/s AI Peak Gradient 61.0 mmHg AI Pressure Half Time 399.9 ms LVOT Peak Velocity 130.8 cm/s LVOT Peak Gradient 6.8 mmHg LVOT Velocity Time Integral 25.7 cm MV Area PHT 3.7 cm??? Mitral E Point Velocity 54.5 cm/s Mitral A Point Velocity 89.7 cm/s Mitral E to A Ratio 0.6 MV Deceleration Time 207.1 ms MV E' Velocity 5.0 cm/s Mitral E to MV E' Ratio 10.8 TR Peak Velocity 220.7 cm/s TR Peak Gradient 19.5 mmHg Right Ventricular Systolic Press 24.5 mmHg FINDINGS Left Ventricle Mildly increased left ventricular wall thickness. Left ventricular cavity size normal. Normal left ventricular systolic function with no obvious regional wall motion abnormalities. Left ventricular ejection fraction is estimated at 55-60 %. Grade 1 diastolic dysfunction. Right Ventricle Right ventricular dilatation. Right ventricular systolic pressure within normal limits. Right Atrium Normal right atrial size. Left Atrium Mildly increased left atrial volume. Mitral Valve Structurally normal mitral valve. Mitral valve thickened. Mild mitral annular calcification. [id number] mitral regurgitation. Aortic Valve Trileaflet aortic valve. No aortic stenosis. Mild to moderate aortic regurgitation. Tricuspid Valve Structurally normal tricuspid valve. Mild tricuspid regurgitation. Pulmonic Valve Structurally normal pulmonic valve. Pericardium No pericardial effusion. Aorta Normal size aortic root and proximal ascending aorta. CONCLUSIONS Normal LV systolic function Aortic sclerosis with mild to moderate aortic regurgitation Mild to moderate mitral regurgitation with mitral valve thickness Previewed by: Dr. Sebastián Pulido MD (Electronically Signed) Final Date: 28 June 2024 10:39
== END | disposition home or self-care (01) ==
LOC: RADECHMAIN 10:51
PROVIDERS: ATTEND Thoracic Surgery (Cardiothoracic Vascular Surgery)
DX: I35.2 Nonrheumatic aortic (valve) stenosis with insufficiency
CPT/HCPCS: 93306

== ENCOUNTER → 2024-06-27 | Outpatient (CLI) | payer OTHER ==
[2024-06-27 11:57] LABS: African American GFR (CKD) 86 (>60 ml/min/1.73 sqM); Blood Urea Nitrogen 25 mg/dL (9-20); Non-African American GFR(CKD) 74 (>60 ml/min/1.73 sqM)
--- NOTE | 2024-06-27 13:23 | CT ---
EXAMINATION TYPE: CT chest without contrast. CT chest angiography with contrast. CT DLP: 979.5 mGycm, Automated exposure control for dose reduction was used. 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 FINDINGS: Lungs/Pleura: No evidence of focal consolidation, pleural effusion or pneumothorax. Airway: Large airways are patent. Heart: The heart is mildly enlarged for size. 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 No evidence for intramural hematoma on no ncontrast imaging. No evidence of intimal flap to suggest dissection. No aneurysm identified. Scatter ed atherosclerotic disease. Mediastinum: No gross evidence of adenopathy. Small hiatal hernia. Musculoskeletal: No acute osseous abnormalities, Similar lesion the posterior thecal sac. Soft Tissues/lymph nodes: Unremarkable. Lower neck: No significant findings. Upper Abdomen: Nonobstructing left 4 mm calculus. Nonobstructing right 4 mm calculus. Gastric lap ban d present and appears within appropriate position. IMPRESSION: 1. 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 Findings similar to 03/24/2023. No evidence for ane urysm. 2. No evidence for dissection or occlusion. No evidence for pulmonary embolus. Bilateral nonobstruct ing renal calculi. 3. Postsurgical changes of gastric lap band in appropriate position. 4. Small hiatal hernia. [facility], Workstation: [email or web address] - [id number], 06/27/2024 1:21 PM
== END | disposition home or self-care (01) ==
LOC: RADCTMAIN 10:55
PROVIDERS: ATTEND Thoracic Surgery (Cardiothoracic Vascular Surgery)
DX: I71.20 Thoracic aortic aneurysm, without rupture, unspecified
CPT/HCPCS: 36415; 71275; 82565; 84520

== ENCOUNTER → 2025-03-10 | Outpatient (CLI) | payer OTHER ==
--- NOTE | 2025-03-12 23:48 | PE ---
EXAMINATION TYPE: PET CT fusion skull to thigh DATE OF EXAM: 03/10/2025 COMPARISON: 03/24/2023 CT Prior PET/CT: None at this location CLINICAL INDICATION: Male, 79 years old with history of C61 MALIGNANT NEOPLASM OF PROSTATE, TECHNIQUE: Following the intravenous administration of 4.91 mCi of Gallium-68 labeled PSMA, whole joan dy images are performed from the skull base to the midthigh. Images are reviewed on the computer in the coronal, axial, and sagittal planes. Reconstructed rotating images are created on [employer] and reviewed on the computer. A localization and attenuation correction CT is performed i n conjunction with the PET scan. DLP: 996 mGycm SCAN: Subsequent Scan FINDINGS: NECK: There is normal radiotracer distribution through salivary glands. No suspicious uptake THORAX: There is a punctate area of increased uptake within the superior mediastinum, image 81, SUV 9 .78. Small metastatic lymph node to be considered. ABDOMEN:There is normal radiotracer excretion through the renal collecting system. Normal uptake wit hin the liver and spleen. There are several punctate areas of uptake within small lymph nodes. Examples include image 185, SUV 15.45. Periaortic and retrocaval adenopathy images 191-192, SUV 39.52. PELVIS: There is a area of increased uptake at the aortic bifurcation and SUV 22.9. Image 219. There may be some uptake within the left iliac chain. Punctate uptake may be within the right inguinal tara on, image 269, SUV 9.18. OSSEOUS STRUCTURES: No suspicious uptake LOCALIZATION CT: Abnormal lymphadenopathy is not enlarged by CT criteria. This may be somewhat compli cated by nearby ureters during a portion of the exam. COMPARISON: None IMPRESSION: 1. Scattered focal areas of uptake within the periaortic and retrocaval region suspicious for small m etastatic lymph nodes. Additional areas of suspicion would include the left iliac chain, aortic bifur cation and superior mediastinum. [facility], Workstation: [id number], 03/12/2025 11:45 PM
== END | disposition home or self-care (01) ==
LOC: RADPETMAIN 11:51
PROVIDERS: ATTEND Internal Medicine Hematology & Oncology
DX: C61 Malignant neoplasm of prostate (principal)
CPT/HCPCS: 78815; A9596